=== PATIENT | female | born 1950 | race Caucasian/White ===

== ENCOUNTER → 2024-12-02 07:45 | Outpatient (BNV) | payer OTHER, SELFPAY | PROVIDERS: Visit Provider Radiology Diagnostic Radiology | DX: Z47.1 Aftercare following joint replacement surgery (principal); Z96.641 Presence of right artificial hip joint | CPT/HCPCS: 73502 ==

== ENCOUNTER 2024-12-02 07:57 | Outpatient (AMB) | payer OTHER, SELFPAY ==
--- NOTE | 2024-12-02 07:58 | MHC.OFFVIS ---
Vital Signs 12/02/24 08:04 Height 5 ft 7 in Weight 143 lb BMI 22.4 Handedness Right Intake Visit Reasons: Right leg pain, Low back pain Intake Note: Renate is a 74 year old female who presents with complaints of progressively worsening low back pain which radiates into her right groin and right leg. The patient did undergo right total hip replacement surgery by Dr. White on 04/05/2023. She states that she did fairly well from that surgery initially. Her pain as well as associated right leg weakness have gotten worse over the last year. She has taken Tylenol which gives her minimal relief. She is not able to take anti-inflammatory medicines because she is on Eliquis. The patient states that she has been limping because of weakness in her right leg. She has tried physical therapy exercises as well as yoga which gave her minimal relief. She has failed the last 6 weeks of conservative treatment. Allergies No Known Allergies Allergy (Verified 12/02/24 08:07) Medication List - Last Reconciled 12/02/24 by Adolfo Clifton MD apixaban (Eliquis) 5 mg PO BID atorvastatin 10 mg PO DAILY fluoxetine 20 mg PO DAILY Physical Exam Vital Signs: BMI result Body Mass Index 22.4 Const Other: Well-nourished well-developed very friendly female awake alert and oriented x3 in no acute distress Back/Spine/Pelvis Other: Low back examination shows right-sided paraspinal muscle tenderness, pain with range of motion, positive straight leg raise test on the right at 70 degrees, 4/5 strength with testing of her right hip flexors and knee extensors when compared to 5/5 strength on her left side Extrem Other: Right hip examination shows that the surgical incision is well healed, no erythema, minimal discomfort with range of motion, minimal tenderness over her bursa Results Reviewed Results Reviewed: X-rays of the patient's right hip show a total hip arthroplasty in good position with no signs of loosening, no acute bony abnormalities Assessment & Plan Assessment & Plan (1) Low back pain radiating to right leg: Code(s): M54.50 - Low back pain, unspecified; M79.604 - Pain in right leg Category: Medical (2) Pain of right lower extremity: Code(s): M79.604 - Pain in right leg Plan Ms. Lee presents with progressively worsening low back pain which radiates into her right leg as well as right leg weakness possibly due to lumbar stenosis or a disc herniation. Thus, I will send her for an MRI of her lumbar spine for further evaluation. I will see her back once the MRI is completed to discuss the findings and treatment options. Feel free to call me at any time should questions regarding her orthopedic management arise. Thank you very much for asking me to see this very friendly patient. I spent 20 minutes in reviewing the patient's records and imaging studies, seeing the patient and documenting in the medical record. Orders: Orders MR lumbar spine wo con Today M54.50 - Low back pain, unspecified, M79.604 - Pain in right leg XR hip RT min 2V Today M25.551 - Pain in right hip Coding Level of Care Code New Pt Level 3 (99918) Complex EM visit Add On G2211 Diagnoses Low back pain radiating to right leg M54.50; M79.604 Pain of right lower extremity M79.604
--- OUTSIDE RECORDS SUMMARY | 2024-12-02 08:00 | XMS_ITS | Clinical Summary ---
Author Organization [address] Address [address] [place] [phone] Phone Care Team Providers Care Band Presser Name Role Phone Florecita Hernandez MD Primary Care Provid er Allergies Active Allergy Reactions Criticality Noted Date Comments Latex Rash 04/05/2023 Medications fluocinolone 0.01 % cream Apply 1 Application topically 2 (two) times a day. For 2 weeks then one week off and as needed Active calcium carbonate 1,500 mg (600 mg elemental calcium) tablet Take 600 mg by mouth 1 (one) time each day. Active cholecalciferol (VITAMIN D-3) 25 mcg (1,000 unit) capsule Take 1 capsule (1,000 Units total) by mouth 1 (one) time each day. Active atorvastatin (LIPITOR) 10 mg tablet Take 1 tablet (10 mg total) by mouth 1 (one) time each day. Active hunygmbi-rar-ku rrous sulfate 4.5 mg iron tablet Take 1 tablet by mouth 1 (one) time each day. Active flaxseed oiL 1,000 mg capsule Take 1 capsule (1,000 mg total) by mouth 1 (one) time each day. Active warfarin (COUMADIN) 5 mg tablet Take 1 tablet (5 mg total) by mouth 1 (one) time each day with dinner. 30 each Active Active Problems Problem Noted Date Diagnosed Date PE (pulmonary thromboembolism) (CMS/HCC V24, CMS /HCC V28) 09/19/2024 Pulmonary embolism (CMS/HCC V24, CMS/HCC V28) Resolved Problems Problem Noted Date Diagnosed Date Resolved Date Major depressive disorder wi th single episode, in full remission ([facility] V24) 09/18/2024 09/18/2024 Other hyperlipidemia 09/18/2024 025 History of total right hip replacement 04/16/2023 09/18/2024 Osteoarthritis of right hip 03/02/2023 09/18/2024 Encounters Date Type Department Care Team Description 09/25/2024 Telephone [facility] Hematology Oncology [address] [place] [phone] Jamaal Cummins MD 09/24/2024 Telephone Gastroenterology - [address] [facility] [address] [place] [phone] Kana De La Cruz MD SPECIAL PROCEDURE 09/23/2024 11:00 AM EDT Telemedicine Vascular Surgery - [place] [address] [place] [phone] Marky Hunter MD PE (pulmonary thromboembolism) ([facility] V24, [facility] V28) (Primary Dx) 09/18/2024 9:45 AM EDT - 09/19/2024 2:31 PM EDT Hospital Encounter [facility] Intermediate Care Unit [address] [place] [phone] Blas Cedeño MD Seralathan, Manikandan, MD Acute pulmonary embolism without acute cor pulmonale, unspecified pulmonary embolism type ([facility] V24, [facility] V28) (Primary Dx); Positive D-dimer; PE (pulmonary thromboembolism) ([facility] V24, [facility] V28) Discharge Disposition: Home or Self Care from Last 3 Months Medical History Medical History Date Comments Other hyperlipidemia 09/18/2024 Major depressive disorder wi th single episode, in full remission ([facility] V24) 09/18/2024 History of total right hip replacement Osteoarthritis of right hip 03/02/2023 Family History Medical History Relation Name Comments Factor V Leiden deficiency Other h er children Relation Name Status Comments Other Social History Tobacco Use Types Packs/Day Years Used Date Smoking Tobacco: Never Smokeless Tobacco: Never Tobacco Cessation:Counseling Given: Not Answered Alcohol Use Standard Drinks/Week Comments Yes 2 (1 standard drink = 0.6 oz pur e alcohol) Housing Instability Answer Date Recorde d Are you worried that in the next 2 months you may not have stable housing? No 09/18/2024 Food Access & Nutrition Answer Date Rec orded Do you have access to a vari ety of food including fruits and vegetables? Yes 09/18/2024 Access to Healthcare Answer Date Record ed Within the last 3 months, ho w many times did you visit the emergency department for your medical care? 0 09/18/2024 Health Literacy Answer Date Recorded How often do you need to hav e someone help you when you read instructions, pamphlets, or other written material from your doctor or pharmacy? Never 09/18/2024 Caregiver: How often do you need to have someone help you when you read instructions, pamphlets, or other written material from your doctor or pharmacy? Not on file 09/18/2024 Financial Risk Answer Date Recorded How hard is it for you to pa y for the very basics like food, housing, medical care, and air conditioning / heating? Not very hard 09/18/2024 Transportation Answer Date Recorded Has the lack of transportati on kept you from meetings, work, or from getting things needed for daily living? No Has the lack of transportati on kept you from medical appointments or from getting medications? No 09/18/2024 Social Isolation Answer Date Recorded How often do you feel lonely or isolated from th ose around you? Never 09/18/2024 Food Risk Answer Date Recorded Within the past 12 months we worried whether our food would run out before we got money to buy more. Never true 09/18/2024 Within the past 12 months th e food we bought just didn't last and we didn't have money to get more. Never true 09/18/2024 Dependent Care Answer Date Recorded Do you need help finding or paying for care for your loved ones. For example, child development consultant or elderly care for an older adult? No 09/18/2024 Education Answer Date Recorded Do you think completing more education or training, like finishing a GED, going to college, or learning a trade, would be helpful for you? No 09/18/2024 Employment and Income Answer Date Recor ded During the last four weeks, have you been actively looking for work? No 09/18/2024 Living Situation Answer Date Recorded What is your living situation? 0 09/18/2024 Interpersonal Safety Answer Date Record ed Physical Abuse 09/18/2024 Verbal Abuse 09/18/2024 Comments No Sex and Gender Information Value Date Recorded Sex Assigned at Female 09/18/2024 9:59 AM EDT Legal Sex Female 8:55 PM EST Gender Identity Female 09/18/2024 9:59 AM EDT Sexual Orientation Straight 09/18/2024 9: 59 AM EDT Obstetrics History Last Filed Vital Signs Vital Sign Reading Time Taken Comments Blood Pressure 105/66 09/19/2024 11:18 AM EDT Pulse 72 09/19/2024 11:18 AM EDT Temperature 37.1 ??C (98.7 ??F) 09/19/2024 11:18 AM E DT Respiratory Rate 20 09/19/2024 11:18 AM EDT Oxygen Saturation 96% 09/19/2024 11:18 AM EDT Inhaled Oxygen Concentration - - Weight 66.4 kg (146 lb 6.2 oz) 09/18/2024 3:18 P M EDT Height 170.2 cm (5' 7 ) 09/18/2024 3:18 PM EDT Body Mass Index 22.93 09/18/2024 3:18 PM EDT Plan of Treatment Health Maintenance Due Date Last Done Comments Cholesterol Screening (Lipid Panel) 07/13/2023 Colorectal Cancer Screening: Colonoscopy 07/13/2023 Depression Screening 07/13/2023 Hepatitis C Screening 07/13/2023 Medicare Annual Wellness Visit 07/13/2023 Osteoporosis Screening (Bone Density Screening) 07/13/2023 RSV Immunization Adult Patients (1 - 1-dose 75+ series) 2024 COVID-19 Vaccine ( season) 2024 05/05/2024, 03/19/2023, 03/28/2021, Additional history exists Falls Risk Assessment 09/18/2025 09/18/2024 Social Influencers of Health Screening 09/18/2025 09/18/2024 DTaP,Tdap,and Td Vaccines (3 - Td or Tdap) 05/05/2034 05/05/2024, 07/07/2013 Pneumococcal Vaccine: 50+ Years Completed 04/03/2017, 03/02/2016 Zoster Vaccines Completed 06/16/2018, 03/18, 03/02/2016 Influenza Vaccine Completed 05/05/2024, , 03/28/2021, Additional history exists HIB Vaccines Aged Out No longer eligi ble based on patient's age to complete this topic HPV Vaccines Aged Out No longer eligi ble based on patient's age to complete this topic Hepatitis A Vaccines Aged Out No long er eligible based on patient's age to complete this topic Hepatitis B Vaccines Aged Out No long er eligible based on patient's age to complete this topic IPV Vaccines Aged Out No longer eligi ble based on patient's age to complete this topic MMR Vaccines Aged Out No longer eligi ble based on patient's age to complete this topic Meningococcal ACWY Vaccine Aged Out N o longer eligible based on patient's age to complete this topic Meningococcal B Vaccine Aged Out No l onger eligible based on patient's age to complete this topic RSV Immunization Patients Under 20 months Aged Out No longer eligible based on patient's age to complete this topic Varicella Vaccines Aged Out No longer eligible based on patient's age to complete this topic Procedures Procedure Name Priority Date/Time Associated Diagnosis Comments HEPARIN ANTI XA Timed 09/19/2024 7:00 AM EDT HEPARIN ANTI XA Timed 09/19/2024 5:07 AM EDT CBC WITH AUTO DIFFERENTIAL Routine 09/19/2024 5:07 AM EDT MAGNESIUM Routine 09/19/2024 5:07 AM EDT BASIC METABOLIC PANEL Routine 09/19/2024 5:07 AM EDT CBC AND DIFFERENTIAL Routine 09/19/2024 5:07 AM EDT HEPARIN ANTI XA Timed 09/19/2024 3:24 AM EDT HEPARIN ANTI XA STAT 09/19/2024 2:20 AM EDT ECG ANNOTATED 09/19/2024 HEPARIN ANTI XA STAT 09/18/2024 7:16 PM EDT TRANSTHORACIC ECHOCARDIOGRAM (TTE) COMPLETE Routine 09/18/2024 3:18 PM EDT PE (pulmonary thromboembolism) (CMS/HCC V24, CMS/HCC V28) XR CHEST 2 VIEWS STAT 09/18/2024 2:[address] ANGIO CHEST WO AND/OR W CONTRAST STAT 09/18/2024 11:22 AM EDT Positive D-dimer VAS US DUPLEX LOWER EXT VENOUS BILAT STAT 09/18/2024 11:18 AM EDT Positive D-dimer TROPONIN I HIGH SENSITIVITY STAT 09/18/2024 10:42 AM EDT HEPARIN ANTI XA STAT Add-on 09/18/2024 9:42 AM EDT PROTHROMBIN TIME WITH INR STAT Add-on 09/18/2024 9:42 AM EDT LIPASE STAT Add-on 09/18/2024 9:42 AM EDT HEPATIC FUNCTION PANEL STAT Add-on 9:42 AM EDT CBC WITH AUTO DIFFERENTIAL STAT 09/18/2024 9:42 AM EDT ACTIVATED PARTIAL THROMBOPLASTIN TIME STAT 09/18/2024 9:42 AM EDT B-TYPE NATRIURETIC PEPTIDE STAT 09/18/2024 9:42 AM EDT TROPONIN I HIGH SENSITIVITY STAT 09/18/2024 9:42 AM EDT BASIC METABOLIC PANEL STAT 09/18/2024 9:42 AM EDT CBC AND DIFFERENTIAL STAT 09/18/2024 9:42 AM EDT CBC WITH AUTO DIFFERENTIAL Routine 09/16/2024 11:57 AM EDT Pure hypercholesterole lyndon Myxedema heart disease Dyspnea D-DIMER Routine 09/16/2024 11:57 AM EDT Pure hypercholesterole lyndon Myxedema heart disease Dyspnea B-TYPE NATRIURETIC PEPTIDE Routine 09/16/2024 11:57 AM EDT Pure hypercholesterole lyndon Myxedema heart disease Dyspnea THYROID STIMULATING HORMONE WITH REFLEX TO FREE T4 AND FREE T3 Routine 09/16/2024 11:57 AM EDT Pure hypercholesterole lyndon Myxedema heart disease Dyspnea CBC AND DIFFERENTIAL Routine 09/16/2024 11:57 AM EDT Pure hypercholesterole lyndon Myxedema heart disease Dyspnea COMPREHENSIVE METABOLIC PANEL Routine 09/16/2024 11:57 AM EDT Pure hypercholesterole lyndon Myxedema heart disease Dyspnea from Last 3 Months Results * (ABNORMAL) Anti-Xa - Every 6 Hours (09/19/2024 7:00 AM EDT) Only the most recent of6 resultswithin the time period is included. Heparin Anti-Xa 0.99(H) 0.30 - 0.70 I Unit/mL LAB COAGULATION METHOD 09/19/2024 7:53 AM EDT [facility] Blood Venous blood specimen / Unknown Venipuncture / Unknown 09/19/2024 7:00 AM EDT 09/19/2024 7:34 AM EDT Narrative [facility] - 09/19/2024 7:53 AM EDT Therapeutic range listed is for Unfractionated Heparin. LMW Heparin therapeutic range: 0.50-1.20 IU/mL us Blas Cedeño MD LAB BLOOD ORDERABLES Final Re sult [facility] [address] [place] [address], [place] [phone] * (ABNORMAL) CBC auto differential (09/19/2024 5:07 AM EDT) Only the most recent of3 resultswithin the time period is included. WBC 4.2(L) 4.8 - 10.8 K/mcL LAB HEMETOLOGY METHOD 09/19/2024 5:20 AM [facility] RBC 3.70(L) 3.80 - 4.80 M/mcL LAB HEMETOLOGY METHOD 09/19/2024 5:20 AM [facility] Hemoglobin 12.4 11.5 - 16.0 g/dL LAB HEMETOLOGY METHOD 09/19/2024 5:20 AM [facility] Hematocrit 36.0 35.0 - 47.0 % LAB HEMETOLOGY METHOD 09/19/2024 5:20 AM [facility] MCV 97.6 79.0 - 98.0 FL LAB HEMETOLOGY METHOD 09/19/2024 5:20 AM [facility] MCH 33.6(H) 27.0 - 32.0 pcg LAB HEMETOLOGY METHOD 09/19/2024 5:20 AM [facility] MCHC 34.4 32.0 - 37.0 g/dL LAB HEMETOLOGY METHOD 09/19/2024 5:20 AM [facility] RDW 11.9 11.0 - 15.0 % LAB HEMETOLOGY METHOD 09/19/2024 5:20 AM [facility] Platelets 160 130 - 400 K/mcL LAB HEMETOLOGY METHOD 09/19/2024 5:20 AM [facility] MPV 10.3 7.0 - 11.0 FL LAB HEMETOLOGY METHOD 09/19/2024 5:20 AM [facility] NRBC 0.0 <1.0 % LAB HEMETOLOGY METHOD 09/19/2024 5:20 AM [facility] NRBC Absolute 0.00 <0.10 K/mcL LAB HEMETOLOGY METHOD 09/19/2024 5:20 AM [facility] Neutrophils Relative 46.3 % LAB HEMETOLOGY METHOD 09/19/2024 5:20 AM [facility] Lymphocytes Relative 41.5 % LAB HEMETOLOGY METHOD 09/19/2024 5:20 AM [facility] Monocytes Relative 8.6 % LAB HEMETOLOGY METHOD 09/19/2024 5:20 AM [facility] Eosinophils Relative 2.9 % LAB HEMETOLOGY METHOD 09/19/2024 5:20 AM [facility] Basophils Relative 0.7 % LAB HEMETOLOGY METHOD 09/19/2024 5:20 AM [facility] Immature Granulocytes Relative 0.0 % LAB HEMETOLOGY METHOD 09/19/2024 5:20 AM [facility] Neutrophils Absolute 1.94 1.50 - 7.00 K/mcL LAB HEMETOLOGY METHOD 09/19/2024 5:20 AM [facility] Lymphocytes Absolute 1.74 1.00 - 5.00 K/mcL LAB HEMETOLOGY METHOD 09/19/2024 5:20 AM [facility] Monocytes Absolute 0.36 0.20 - 1.00 K/mcL LAB HEMETOLOGY METHOD 09/19/2024 5:20 AM [facility] Eosinophils Absolute 0.12 0.00 - 0.50 K/mcL LAB HEMETOLOGY METHOD 09/19/2024 5:20 AM [facility] Basophils Absolute 0.03 0.00 - 0.20 K/mcL LAB HEMETOLOGY METHOD 09/19/2024 5:20 AM [facility] Immature Granulocytes Absolute 0.00 0.00 - 0.03 K/mcL LAB HEMETOLOGY METHOD 09/19/2024 5:20 AM EDT [facility] Blood Venous blood specimen / Unknown Venipuncture / Unknown 09/19/2024 5:07 AM EDT 09/19/2024 5:14 AM EDT Lynne DOWD LAB BLOOD ORDERABLES Final Re sult Performing Organization Address City/[facility]/ZIP Co de Phone Number [facility] [address] [place] [address], [place] [phone] * Magnesium (09/19/2024 5:07 AM EDT) Pathologist [facility] Magnesium 2.2 1.9 - 2.6 mg/dL LAB CHEMISTRY METHOD 09/19/2024 5:41 AM EDT [facility] Blood Venous blood specimen / Unknown Venipuncture / Unknown 09/19/2024 5:07 AM EDT 09/19/2024 5:14 AM EDT Blas Cedeño MD LAB BLOOD ORDERABLES Final Re sult Performing Organization Address City/[facility]/ZIP Co de Phone Number [facility] [address] [place] [address], [place] [phone] * Basic metabolic panel (09/19/2024 5:07 AM EDT) Only the most recent of2 resultswithin the time period is included. Sodium 139 133 - 145 mmol/L LAB CHEMISTRY METHOD 09/19/2024 5:41 AM EDT [facility] Potassium 3.9 3.5 - 5.5 mmol/L LAB CHEMISTRY METHOD 09/19/2024 5:41 AM EDT [facility] Chloride 107 96 - 110 mmol/L LAB CHEMISTRY METHOD 09/19/2024 5:41 AM EDT [facility] CO2 27 21 - 32 mmol/L LAB CHEMISTRY METHOD 09/19/2024 5:41 AM [facility] Anion Gap 5 3 - 11 LAB CHEMISTRY METHOD 09/19/2024 5:41 AM [facility] Glucose 96 70 - 100 mg/dL LAB CHEMISTRY METHOD 09/19/2024 5:41 AM [facility] BUN 18 5 - 25 mg/dL LAB CHEMISTRY METHOD 09/19/2024 5:41 AM [facility] Creatinine 0.93 0.50 - 1.10 mg/dL LAB CHEMISTRY METHOD 09/19/2024 5:41 AM [facility] eGFR 65 >=60 mL/min/1. 73m2 LAB CHEMISTRY METHOD 09/19/2024 5:41 AM [facility] Comment:Calculation based on the??Chronic Kidney Disease Epidemiology Collaboration (CKD-EPI) equation refit??without adjustment for race. BUN/Creatinine Ratio 19.4 LAB CHEMISTRY METHOD 09/19/2024 5:41 AM [facility] Calcium 8.8 8.5 - 10.5 mg/dL LAB CHEMISTRY METHOD 09/19/2024 5:41 AM [facility] Blood Venous blood specimen / Unknown Venipuncture / Unknown 09/19/2024 5:07 AM EDT 09/19/2024 5:14 AM EDT us Lynne DOWD LAB BLOOD ORDERABLES Final Re sult [facility] [address] [place] [address], * ECG-Annotated (09/19/2024) us Provider Onbase MD ECG ORDERABLES Final Result * (ABNORMAL) TRANSTHORACIC ECHOCARDIOGRAM (TTE) COMPLETE (09/18/2024 3:18 PM EDT) Left Atrium Major [place] 4.5 cm CV PACS LA Area Sys (A4C) 14 cm2 CV PACS RA Area 10.6 cm2 CV PACS RA 2D Volume 21 mL CV PACS Aortic Sinus Valsalva 3.5 cm CV PACS Ascending Aorta 3.4 cm CV PACS LVOT Diameter 2.1 cm CV PACS MV E' Tissue Velocity Lateral 9 cm/s CV PACS MV E' Tissue Velocity Septal 5 cm/s CV PACS LVOT Area 3.5 cm2 CV PACS E Wave Deceleration Time 239 119 - 242 ms CV PACS MV Peak A Naif 0.80 m/s CV PACS MV Peak E Naif 0.50 m/s CV PACS RV S' 13 cm/s CV PACS TR Peak Velocity 2.70 m/s CV PACS TR Peak Gradient 30 mmHg CV PACS E/E' Ratio Septal 10 CV PACS E/E' Ratio Averaged 8 CV PACS Ascending Aorta Index 1.92 cm/m2 CV PACS RA 2D Volume Index 12 15 - 27 mL/m2 CV PACS E/A Ratio 0.6 0.8 - 2.0 CV PACS E/E' Ratio Lateral 6 CV PACS BSA 1.77 m2 CV PACS Right Ventricular Peak Systolic Pressure 32 mmHg CV PACS Est. RA Pressure 3 mmHg CV PACS LVIDD 4.8 3.8 - 5.2 cm CV PACS LVIDD Index 2.71 cm/m2 CV PACS LVPWD 1.0(A) 0.6 - 0.9 cm CV PACS IVSD 0.8 0.6 - 0.9 cm CV PACS LV Mass 2D 148(A) 66 - 150 g CV PACS LV Mass Index 2D 83 44 - 88 g/m2 CV PACS Relative Wall Thickness ratio 0.42 0.22 - 0.42 CV PACS RV Free Wall Peak S' 13 cm/s CV PACS RA Major [place] 4.4 cm CV PACS RA Major [place] Index 2.5 2.2 - 2.8 cm/m2 CV PACS MV PHT 69 ms CV PACS LVIDS 2.7 2.2 - 3.5 cm CV PACS LVIDS Index 1.53 cm/m2 CV PACS FS 44 % CV PACS Anatomical Region Laterality Modality Ultrasound Narrative 09/18/2024 3:51 PM EDT 1. ??Normal biventricular size and systolic function. Normal left ventricular regional wall motion with an ejection fraction of 60 to 65%. 2. ??No hemodynamically significant valve disease. 3. ??Normal left ventricular diastolic function. ??Normal pulmonary artery systolic pressure. Technically adequate, 2D, M-mode, and Doppler echocardiogram without significant pathologic findings. Left Ventricle Left ventricle cavity size is normal. Wall thickness is normal. Systolic function is normal with an ejection fraction of 60-65%. There are no regional LV wall motion abnormalities. There is no diastolic dysfunction and normal left atrial pressure. Right Ventricle Right ventricle cavity appears normal. Systolic function is normal. Left Atrium Left atrium cavity size is normal. Right Atrium Right atrium cavity is normal. IVC/SVC Inferior vena cava structure is normal. RA pressures is estimated to be 3 mmHg (IVC diameter <21 mm and decreases >50% during inspiration). Mitral Valve The leaflets are mildly thickened and exhibit normal excursion. There is trace regurgitation. There is no evidence of mitral valve stenosis. Tricuspid Valve The leaflets exhibit normal excursion. There is mild regurgitation. There is no evidence of tricuspid valve stenosis. Aortic Valve The aortic valve is trileaflet. There is trace regurgitation. There is no evidence of aortic valve stenosis. Pulmonic Valve Visualized portions of the pulmonic valve appear normal. There is no regurgitation or stenosis. Ascending Aorta The aorta appears normal in size. Pericardium Pericardium appears normal. There is no pericardial effusion. Study Details Overall the study quality was adequate. us Lynne DOWD CV ECHO PROCEDURES Final Resu lt * XR Chest 2 Views (09/18/2024 2:47 PM EDT) Anatomical Region Laterality Modality Body Radiographic Madisyn ging 09/18/2024 3:07 PM EDT Impressions 09/18/2024 3:08 PM EDT FINDINGS/IMPRESSION: No consolidation or effusion. ??Normal heart size without congestive heart failure. ??Pleural parenchymal scarring at the apices. ??Mild degenerative changes. -------- FINAL REPORT -------- Dictated By: Jan Cherry Dictated Date: 09/18/2024 15:07 ET Assigned Physician: Jan Cherry Reviewed and Electronically Signed By: Jan Cherry Signed Date: 09/18/2024 15:08 ET Workstation ID: [id number] Transcribed By: Self Edit Transcribed Date: 09/18/2024 15:07 ET Narrative 09/18/2024 3:08 PM EDT XR CHEST 2 VIEWS INDICATION: dyspnea TECHNIQUE: XR CHEST 2 VIEWS COMPARISON: No priors available. Procedure Note Jan Cherry MD - 09/18/2024 XR CHEST 2 VIEWS INDICATION: dyspnea TECHNIQUE: XR CHEST 2 VIEWS COMPARISON: No priors available. IMPRESSION: FINDINGS/IMPRESSION: No consolidation or effusion. Normal heart sizewithout congestive heart failure. Pleural parenchymal scarring at theapices. Mild degenerative changes. -------- FINAL REPORT -------- Dictated By: Jan Cherry Dictated Date: 09/18/2024 15:07 ET Assigned Physician: Jan Cherry Reviewed and Electronically Signed By: Jan Cherry Signed Date: 09/18/2024 15:08 ET Workstation ID: [id number] Transcribed By: Self Edit Transcribed Date: 09/18/2024 15:07 ET Lynne DOWD IMG XR PROCEDURES Final Resul t * CT Angio Chest wo and/or w Contrast (09/18/2024 11:22 AM EDT) Anatomical Region Laterality Modality Body Computed Tomogra phy 09/18/2024 11:5 5 AM EDT Impressions 09/18/2024 11:59 AM EDT Bilateral pulmonary arterial emboli without evidence of right heart strain or pulmonary infarct. Findings communicated to the ordering provider at time of final report signing. -------- FINAL REPORT -------- Dictated By: DREW LIAO Dictated Date: 09/18/2024 11:55 ET Assigned Physician: DREW LIAO Reviewed and Electronically Signed By: DREW LIAO Signed Date: 09/18/2024 11:59 ET Workstation ID: [id number] Transcribed By: Self Edit Transcribed Date: 09/18/2024 11:55 ET Narrative 09/18/2024 11:59 AM EDT PROCEDURE: Chest CTA INDICATION: Pulmonary embolism, elevated d-dimer TECHNIQUE: Chest CTA with intravenous administration of 75cc [id number]-370. Multi planar reformats were created and interpreted. The examination was performed utilizing dose reduction techniques.3-D or MIP images were produced with postprocessing on an independent computer workstation. ??Total DLP 175 COMPARISON: ??No priors available. FINDINGS: LUNGS/PLEURA: Central airways are patent. ??Biapical pleural-parenchymal scarring. ??No consolidation, pleural effusion, or pneumothorax. MEDIASTINUM: There are extensive bilateral pulmonary arterial emboli throughout the pulmonary arteries with clot burden more pronounced on the right. ??No CT evidence of right heart strain. ??Cardiac chambers are normal in size. ??No pericardial effusion. ??Thoracic aorta is normal in size. ??No dissection. ??No mediastinal or hilar lymphadenopathy. ??Esophagus is patulous. ??Small, heterogeneous thyroid gland, not well assessed by CT. CHEST WALL: No axillary lymphadenopathy or superficial hematoma. UPPER ABDOMEN:Multiple hepatic cysts. BONES: No acute fracture. Scattered degenerative changes seen throughout the bones. Procedure Note Drew Liao MD - 09/18/2024 PROCEDURE: Chest CTA INDICATION: Pulmonary embolism, elevated d-dimer TECHNIQUE: Chest CTA with intravenous administration of 75cc ISOVUE-370.Multi planar reformats were created and interpreted. The examination wasperformed utilizing dose reduction techniques.3-D or MIP images wereproduced with postprocessing on an independent computer workstation.Total DLP 175 COMPARISON: No priors available. FINDINGS: LUNGS/PLEURA: Central airways are patent. Biapical pleural-parenchymalscarring. No consolidation, pleural effusion, or pneumothorax. MEDIASTINUM: There are extensive bilateral pulmonary arterial embolithroughout the pulmonary arteries with clot burden more pronounced on theright. No CT evidence of right heart strain. Cardiac chambers are normalin size. No pericardial effusion. Thoracic aorta is normal in size. Nodissection. No mediastinal or hilar lymphadenopathy. Esophagus ispatulous. Small, heterogeneous thyroid gland, not well assessed by CT. CHEST WALL: No axillary lymphadenopathy or superficial hematoma. UPPER ABDOMEN:Multiple hepatic cysts. BONES: No acute fracture. Scattered degenerative changes seen throughoutthe bones. IMPRESSION: Bilateral pulmonary arterial emboli without evidence of right heart strainor pulmonary infarct. Findings communicated to the ordering provider at time of final reportsigning. -------- FINAL REPORT -------- Dictated By: DREW LIAO Dictated Date: 09/18/2024 11:55 ET Assigned Physician: DREW LIAO Reviewed and Electronically Signed By: DREW LIAO Signed Date: 09/18/2024 11:59 ET Workstation ID: [id number] Transcribed By: Self Edit Transcribed Date: 09/18/2024 11:55 ET us Lb [facility] IMG CT PROCEDURES Final R esult * Vascular US Duplex Lower Extremity Venous Bilateral (09/18/2024 11:18 AM EDT) Anatomical Region Laterality Modality Vascular, Abdomen Ultrasound 09/18/2024 11:5 4 AM EDT Impressions 09/18/2024 11:55 AM EDT NO RIGHT OR LEFT LOWER EXTREMITY DEEP VENOUS THROMBOSIS. -------- FINAL REPORT -------- Dictated By: DREW LIAO Dictated Date: 09/18/2024 11:54 ET Assigned Physician: DREW LIAO Reviewed and Electronically Signed By: DREW LIAO Signed Date: 09/18/2024 11:55 ET Workstation ID: [id number] Transcribed By: Self Edit Transcribed Date: 09/18/2024 11:54 ET Narrative 09/18/2024 11:55 AM EDT PROCEDURE: VAS US DUPLEX LOWER EXT VENOUS BILAT INDICATION: Pain TECHNIQUE: 2-D and color Doppler imaging of the lower extremity venous vasculature with compression and augmentation maneuvers. COMPARISON: No priors available. FINDINGS: RIGHT: There is normal flow, compression, and augmentation from the common femoral through the popliteus. ??Visualized calf veins are patent LEFT: There is normal flow, compression, and augmentation from the common femoral through the popliteus. ??Visualized calf veins are patent Procedure Note Drew Liao MD - 09/18/2024 PROCEDURE: VAS US DUPLEX LOWER EXT VENOUS BILAT INDICATION: Pain TECHNIQUE: 2-D and color Doppler imaging of the lower extremity venousvasculature with compression and augmentation maneuvers. COMPARISON: No priors available. FINDINGS: RIGHT: There is normal flow, compression, and augmentation from the commonfemoral through the popliteus. Visualized calf veins are patent LEFT: There is normal flow, compression, and augmentation from the commonfemoral through the popliteus. Visualized calf veins are patent IMPRESSION: NO RIGHT OR LEFT LOWER EXTREMITY DEEP VENOUS THROMBOSIS. -------- FINAL REPORT -------- Dictated By: DREW LIAO Dictated Date: 09/18/2024 11:54 ET Assigned Physician: DREW LIAO Reviewed and Electronically Signed By: DREW LIAO Signed Date: 09/18/2024 11:55 ET Workstation ID: [id number] Transcribed By: Self Edit Transcribed Date: 09/18/2024 11:54 ET Lb DOW[facility] CV VASCULAR PROCEDURES Fi nal Result * Troponin I high sensitivity (09/18/2024 10:42 AM EDT) Only the most recent of2 resultswithin the time period is included. High Sensitivity Troponin I 3 <=54 ng/L LAB CHEMISTRY METHOD 09/18/2024 11:23 AM EDT [facility] Blood Venous blood specimen / Unknown Venipuncture / Unknown 09/18/2024 10:42 AM EDT 09/18/2024 10:55 AM EDT Narrative [facility] - 09/18/2024 11:23 AM EDT High levels of biotin in samples may falsely decrease hsTroponin values. ??Use caution when interpreting hsTroponin results in patients taking biotin who exhibit renal impairment (eGFR <60) or in patients taking more than 20 mg/day of biotin. Blas Cedeño MD LAB BLOOD ORDERABLES Final Re sult [facility] [address] [place] [address], * APTT (09/18/2024 9:42 AM EDT) aPTT 27.8 24.1 - 39.3 sec LAB COAGULATION METHOD 09/18/2024 9:59 AM EDT [facility] Blood Venous blood specimen / Unknown Venipuncture / Unknown 09/18/2024 9:42 AM EDT 09/18/2024 9:47 AM EDT Blas Cedeño MD LAB BLOOD ORDERABLES Final Re sult [facility] [address] [place] [address], [place] [phone] * Prothrombin Time with INR - STAT (09/18/2024 9:42 AM EDT) [facility] Protime 11.5 10.6 - 13.9 sec LAB COAGULATION METHOD 09/18/2024 1:58 PM EDT [facility] INR 0.9 LAB COAGULATION METHOD 09/18/2024 1:58 PM EDT [facility] Blood Venous blood specimen / Unknown Venipuncture / Unknown 09/18/2024 9:42 AM EDT 09/18/2024 9:47 AM EDT Lb [facility] LAB BLOOD ORDERABLES Day l Result [facility] [address] [place] [address], [place] [phone] * B-type natriuretic peptide (09/18/2024 9:42 AM EDT) Only the most recent of2 resultswithin the time period is included. Pathologist [facility] BNP 46 <=100 pcg/mL LAB CHEMISTRY METHOD 09/18/2024 10:27 AM EDT [facility] Blood Venous blood specimen / Unknown Venipuncture / Unknown 09/18/2024 9:42 AM EDT 09/18/2024 9:47 AM EDT Blas Cedeño MD LAB BLOOD ORDERABLES Final Re sult Performing Organization Address [facility]/ZIP Co de Phone Number [facility] [address] [place] [address], [place] [phone] * Lipase (09/18/2024 9:42 AM EDT) [facility] Lipase 36 13 - 75 unit/L LAB CHEMISTRY METHOD 09/18/2024 11:47 AM EDT [facility] Blood Venous blood specimen / Unknown Venipuncture / Unknown 09/18/2024 9:42 AM EDT 09/18/2024 9:47 AM EDT Lb [facility] LAB BLOOD ORDERABLES Day l Result Performing Organization Address [facility]/ZIP Co de Phone Number [facility] [address] [place] [address], [place] [phone] * Hepatic function panel (09/18/2024 9:42 AM EDT) [facility] Total Protein 6.6 6.0 - 8.0 g/dL LAB CHEMISTRY METHOD 09/18/2024 12:52 PM EDT [facility] Albumin 3.7 3.2 - 5.0 g/dL LAB CHEMISTRY METHOD 09/18/2024 12:52 PM EDT [facility] Total Bilirubin 0.5 0.0 - 1.4 mg/dL LAB CHEMISTRY METHOD 09/18/2024 12:52 PM EDT [facility] Bilirubin, Direct 0.2 0.0 - 0.3 mg/dL LAB CHEMISTRY METHOD 09/18/2024 12:52 PM EDT [facility] Bilirubin, Indirect 0.3 0.0 - 1.1 mg/dL LAB CHEMISTRY METHOD 09/18/2024 12:52 PM EDT [facility] ALT (SGPT) 23 10 - 60 unit/L LAB CHEMISTRY METHOD 09/18/2024 12:52 PM EDT [facility] AST (SGOT) 29 10 - 42 unit/L LAB CHEMISTRY METHOD 09/18/2024 12:52 PM EDT [facility] Alkaline Phosphatase 63 42 - 121 unit/L LAB CHEMISTRY METHOD 09/18/2024 12:52 PM EDT [facility] Blood Venous blood specimen / Unknown Venipuncture / Unknown 09/18/2024 9:42 AM EDT 09/18/2024 9:47 AM EDT Lb DOW[facility] LAB BLOOD ORDERABLES Day l Result Performing Organization Address City/[facility]/ZIP Co de Phone Number [facility] [address] [place] [address], [place] [phone] * Thyroid stimulating hormone with reflex to free t4 and free t3 (09/16/2024 11:57 AM EDT) [facility] TSH 2.07 0.40 - 4.00 mcIU/mL LAB CHEMISTRY METHOD 09/16/2024 5:28 PM EDT [facility] Blood Venous blood specimen / Unknown Venipuncture / Unknown 09/16/2024 11:57 AM EDT 09/16/2024 12:14 PM EDT Florecita Hernandez MD LAB BLOOD ORDERABLES Final Result [facility] [address] [place] [address], [place] [phone] * (ABNORMAL) D-Dimer (09/16/2024 11:57 AM EDT) Pathologist [facility] D-Dimer, Quant (D-DU) 2,703(H) <=230 ng/mL DDU LAB COAGULATION METHOD 09/16/2024 12:31 PM EDT [facility] Blood Venous blood specimen / Unknown Venipuncture / Unknown 09/16/2024 11:57 AM EDT 09/16/2024 12:[address] [facility] - 09/16/2024 12:31 PM EDT D-Dimer <230 ng/mL (D-Dimer units) is the threshold for exclusion of DVT/PE. D-Dimer may be elevated in: Critically ill, severely infected, trauma patients, DIC, acute CVA, acute GA, unstable angina, AF, old age, , and smoking. D-Dimer may be decreased with: Initiation of heparin therapy and oral anticoagulants. us Florecita Hernandez MD LAB BLOOD ORDERABLES Final Result [facility] [address] [place] [address], * Comprehensive metabolic panel (09/16/2024 11:57 AM EDT) Sodium 140 133 - 145 mmol/L LAB CHEMISTRY METHOD 09/16/2024 4:47 PM [facility] Potassium 4.3 3.5 - 5.5 mmol/L LAB CHEMISTRY METHOD 09/16/2024 4:47 PM [facility] Chloride 106 96 - 110 mmol/L LAB CHEMISTRY METHOD 09/16/2024 4:47 PM [facility] CO2 28 21 - 32 mmol/L LAB CHEMISTRY METHOD 09/16/2024 4:47 PM [facility] Anion Gap 6 3 - 11 LAB CHEMISTRY METHOD 09/16/2024 4:47 PM [facility] Glucose 88 70 - 100 mg/dL LAB CHEMISTRY METHOD 09/16/2024 4:47 PM [facility] BUN 15 5 - 25 mg/dL LAB CHEMISTRY METHOD 09/16/2024 4:47 PM [facility] Creatinine 0.83 0.50 - 1.10 mg/dL LAB CHEMISTRY METHOD 09/16/2024 4:47 PM [facility] eGFR 74 >=60 mL/min/1. 73m2 LAB CHEMISTRY METHOD 09/16/2024 4:47 PM [facility] Comment:Calculation based on the??Chronic Kidney Disease Epidemiology Collaboration (CKD-EPI) equation refit??without adjustment for race. BUN/Creatinine Ratio 18.1 LAB CHEMISTRY METHOD 09/16/2024 4:47 PM [facility] Calcium 9.0 8.5 - 10.5 mg/dL LAB CHEMISTRY METHOD 09/16/2024 4:47 PM [facility] AST (SGOT) 21 10 - 42 unit/L LAB CHEMISTRY METHOD 09/16/2024 4:47 PM [facility] ALT (SGPT) 25 10 - 60 unit/L LAB CHEMISTRY METHOD 09/16/2024 4:47 PM [facility] Alkaline Phosphatase 59 42 - 121 unit/L LAB CHEMISTRY METHOD 09/16/2024 4:47 PM [facility] Total Protein 6.2 6.0 - 8.0 g/dL LAB CHEMISTRY METHOD 09/16/2024 4:47 PM [facility] Albumin 3.7 3.2 - 5.0 g/dL LAB CHEMISTRY METHOD 09/16/2024 4:47 PM [facility] Total Bilirubin 0.4 0.0 - 1.4 mg/dL LAB CHEMISTRY METHOD 09/16/2024 4:47 PM [facility] Blood Venous blood specimen / Unknown Venipuncture / Unknown 09/16/2024 11:57 AM EDT 09/16/2024 12:14 PM EDT Florecita Hernandez MD LAB BLOOD ORDERABLES Final Result [facility] [address] [place] [address], [place] [phone] from Last 3 Months Insurance [employer] MEDICARE Advance Directives * Full Code - Confirmed (Latest Code Status on File) Date Activated Date Inactivated Comments 09/18/2024 2:51 PM 09/19/2024 4:32 PM This code stat us was ascertained in the following way: Code status discussion: discussion with patient To update the patient's code status, place a code status order. Do not modify or discontinue any currently active code status orders. * Full Code - Default Date Activated Date Inactivated Comments 09/18/2024 2:45 PM 09/18/2024 2:51 PM This is order is used when code status has not been discussed with the patient, or code status is otherwise unknown/unconfirmed To update the patient's code status, place a code status order. Do not modify or discontinue any currently active code status orders. Care Teams Band Presser Relationship Specialty Start Date End Date Florecita Hernandez MD [address] [place] [address] [address] [place] [phone] PCP - General Endocrinology 09/16/24
[2024-12-02 08:04] VITALS: BMI 22.4
== END 2024-12-02 08:27 | disposition home or self-care (01) ==
LOC: HO.HOS 07:58
PROVIDERS: Visit Provider Orthopaedic Surgery
DX: M54.50 Low back pain, unspecified (principal); M79.604 Pain in right leg
CPT/HCPCS: 99203

== ENCOUNTER 2024-12-02 08:20 | Outpatient (REF) | payer MEDICARE, SELFPAY ==
--- NOTE | ~2024-12-02 | XR_ITS ---
EXAMINATION: XR HIP, RIGHT CLINICAL INFORMATION: M25.551 - Pain in right hip COMPARISON: None available. TECHNIQUE: Two views of the right hip. FINDINGS: There is a metallic prosthesis with an acetabular and femoral component well-seated in the osseous structures. No acute cortical disruption or malalignment. No gross loosening. Left hip demonstrates sclerosis along the articular surface of the acetabulum and to a lesser extent femoral head. No acute cortical disruption or malalignment. 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 Electronically signed by: Ritesh Martino MD 12/02/2024 08:39 AM EDT
--- OUTSIDE RECORDS SUMMARY | 2024-12-03 08:36 | XMS_ITS | Continuity of Care Document ---
Author Organization [facility] [address] [facility] [address] [place] [address] Phone [phone] Care Team Providers Care Principal Technologist Name Role Phone Florecita Hernandez M.D. 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 Onset: 08/28/2022 Leukopenia Florecita Hernandez M.D. Ons et: 08/28/2022 Chronic depression Florecita Hernandez M.D. Onset: 08/28/2022 Osteopenia Florecita Hernandez M.D. Ons et: 08/28/2022 Osteoarthritis of hip Regan Vides Onset: 08/28/2022 Pure hypercholesterolemia Florecita Hernandez M.D. Onset: 08/28/2022 History of deep vein thrombosis Florecita Burt M.D. Onset: 08/28/2022 Subclinical hypothyroidism Florecita castañeda M.D. Onset: 08/28/2022 Social History Type Date Description Comments Sex Female Sex Unknown Lives With Spouse Occupation dental hygenist Work Status Retired ETOH Use Occasionally consumes alcoho l Tobacco Use Start: Unknown Patient has never smoked Allergies and adverse reactions Description No Known Drug Allergies Medications Active Medications SIG Qnty Indications Order ing Provider Date Etcleao4co Tablets Take 1 tablet by mouth twice a day, starting on September 29, 2024 180tabs Florecita Hernandez M.D. 09/26/2024 Atorvastatin [id number] Tablets Take 1 Tablet By Mouth Daily 90tabs Florecita Hernandez M.D. 03/13/2024 Bxwuxpi39vo/0.4ML Soln Prefill Syringe 40 mg sc qd as directed-4 pens 4ml Florecita Hernandez M.D. 08/21/2023 Triamcinolone Acetonide0.1% Ointment apply twice a day as directed to eczematous patches 45gm Florecita Hernandez M.D. 08/21/2023 Probiotic DailyCapsules 1 qd Florecita Hernandez M.D. 08/21/2023 Fluoxetine KCZ46ov Capsules Take 1 Capsule By Mouth Daily 90caps Florecita Hernandez M.D. Fluocinolone Acetonide0.01% Cream Apply To Affected Areas Of Eczema On Face Twice A Day Two Weeks On, One Week Off Unknown Calcium Citrate+X5797-9.25mg- mcg Tablets 3 by mouth daily Florecita Hernandez M.D. Vitamin P599zly (2000 Ut) Capsules 1 by mouth every day Florecita Hernandez M.D. Multivitamin Adults 50+Adlt 50+ Tablets 1 by mouth every day Florecita Hernandez M.D. Eql Flaxseed [id number] Capsules 1 by mouth every day Florecita Hernandez M.D. Vital Signs Date Vital Result Comment 10/02/2024 2:42pm BP Systolic 110 mmHg BP Diastolic 62 mmHg Heart Rate 78 /min Height 66.5 inches 5'6.50 Weight 146.50 lb BMI (Body Mass Index) 23.3 kg/m2 Results Test Acquired Date Facility Test Result H/L Range Note Prothrombin Time (PT) 09/26/2024 [facility] Inr 3.0 High 0.9-1.1 1 Prothrombin Time 28.3 SEC High 9.2-11.4 Prothrombin Time (PT) 09/23/2024 [facility] Inr 1.5 High 0.9-1.1 2 Prothrombin Time 15.1 SEC High 9.2-11.4 CMP W/Egfr 09/16/[address] [address] [phone] Z#Other Observations <pending> CBC W/Auto Differential 09/16/[address] [address] White Blood Count Ser Auto CNT <pending> RBC Red Blood Count-Auto <pending> Hemoglobin Blood <pending> Hematocrit <pending> MCV (Corpuscular Volume) <pending> MCH (Corpuscular Hemoglobin) <pending> MCHC (Corpuscular Hemog Conc) <pending> RDW <pending> Platelet Count Blood Auto CNT <pending> MPV <pending> Neutrophils <pending> Fluid Bands <pending> Fluid Lymphocytes <pending> Monocytes <pending> Fluid Body Eosinophils Manual <pending> Basophils % <pending> Absolute Basophils <pending> Absolute Eosinophils <pending> Absolute Lymphocytes Blood <pending> Absolute Monocytes <pending> Absolute Neutrophils Auto CNT <pending> TSH W/Reflex To Free T4 09/16/[address] [address] [phone] TSH Thyroid Stimulating Horm <pending> NT Probnp QN Ser/Plas 09/16/[address] [address] NT Probnp QN Ser/Plas <pending> D-Dimer Test 09/16/[address] [address] Z#Other Observations <pending> Urinalysis, Complete 04/01/2024 [facility] Specific [place] 1.014 1.005-1.03 0 3 pH 6.5 5.0-7.5 Urine-Color Yellow Yellow Appearance Clear Clear WBC Esterase 2+ Abnormal Negative Protein Negative Negative/T race Glucose Negative Negative Ketones Negative Negative Occult Blood Negative Negative Bilirubin Negative Negative Urobilinogen,Se mi-Qn 1.0 mg/dL 0.2-1.0 Nitrite, Urine Positive Abnormal Negativ e Microscopic Examination See below: 4 Microscopic Examination TNP WBC 6-10 /hpf Abnormal 0 - 5 RBC 0-2 /hpf 0 - 2 Epithelial Cells (non renal) 0-10 /hpf 0 - 10 Epithelial Cells (renal) TNP Casts None seen /lpf None seen Cast Type TNP Crystals TNP Crystal Type TNP Mucus Threads TNP Bacteria None seen None seen/Few Yeast TNP Trichomonas TNP Comment TNP Urine Culture, Routine 04/01/2024 [facility] Urine Culture, Routine Final report 5 Result 1 See Comment: 6 Comp. Metabolic Panel (14) 03/11/2024 [facility] Glucose 91 mg/dL 70-99 BUN 13 mg/dL 8-27 Creatinine 0.79 mg/dL 0.57-1.00 eGFR 78 mL/min/1.7 3 >59 BUN/Creatinine Ratio 16 12-28 Sodium 143 mmol/L 134-144 Potassium 4.2 mmol/L 3.5-5.2 Chloride 104 mmol/L 96-106 Carbon Dioxide, Total 23 mmol/L 20-29 Calcium 9.0 mg/dL 8.7-10.3 Protein, Total 6.4 g/dL 6.0-8.5 Albumin 4.3 g/dL 3.8-4.8 Globulin, Total 2.1 g/dL 1.5-4.5 Bilirubin, Total 0.5 mg/dL 0.0-1.2 Alkaline Phosphatase 58 IU/L 44-121 Ast (Sgot) 29 IU/L 0-40 Alt (SGPT) 20 IU/L 0-32 Lipid Panel 03/11/2024 [facility] Cholesterol, Total 253 mg/dL High 100-199 Triglycerides 126 mg/dL 0-149 HDL Cholesterol 65 mg/dL >39 VLDL Cholesterol Farhat 22 mg/dL 5-40 LDL Chol Calc ([facility]) 166 mg/dL High 0-99 LDL Calc Comment: TNP CBC With Differential/Pl atelet 03/11/2024 [facility] WBC 3.6 x10E3/uL 3.4-10.8 RBC 3.85 x10E6/uL 3.77-5.28 Hemoglobin 12.9 g/dL 11.1-15.9 Hematocrit 38.7 % 34.0-46.6 MCV 101 fL High 79-97 MCH 33.5 pg High 26.6-33.0 MCHC 33.3 g/dL 31.5-35.7 RDW 12.1 % 11.7-15.4 Platelets 216 x10E3/uL 150-450 Neutrophils 63 % Not Estab. Lymphs 24 % Not Estab. Monocytes 10 % Not Estab. Eos 2 % Not Estab. Basos 1 % Not Estab. Immature Cells TNP Neutrophils (Absolute) 2.3 x10E3/uL 1.4-7.0 Lymphs (Absolute) 0.9 x10E3/uL 0.7-3.1 Monocytes(Absol giana) 0.3 x10E3/uL 0.1-0.9 Eos (Absolute) 0.1 x10E3/uL 0.0-0.4 Baso (Absolute) 0.0 x10E3/uL 0.0-0.2 Immature Granulocytes 0 % Not Estab. Immature Grans (Abs) 0.0 x10E3/uL 0.0-0.1 NRBC TNP Hematology Comments: TNP TSH Rfx on Abnormal to Free T4 03/11/2024 [facility] TSH Rfx on Abnormal to Free T4 2.610 uIU/mL 0.450-4.50 0 Sedimentation Rate-Westergren 01/04/2024 [facility] Sedimentation Rate-Westergren 3 mm/hr 0-40 Complete Abc With Diff 08/21/2023 [facility] WBC 4.0 K/MM3 (4.0-11.0) RBC 3.97 M/MM3 Low (4.20-5.40 ) HGB 13.2 GM/DL (11.7-15.5 ) HCT 41.4 % (35.7-45.8 ) MCV 104.3 FL High (80.0-100. 0) MCH 33.2 pg (27.0-34.0 ) MCHC 31.9 g/dL Low (33.0-37.0 ) PLT 209 K/MM3 (150-460) RDW-SD 48.7 FL High (<47.0) MPV 11.4 FL (9.4-12.4) Automated NRBC 0.0 #/100WBC'S Abs. NRBC 0.0 K/MM3 Neut # 2.2 K/MM3 (1.3-7.0) Lymph # 1.3 K/MM3 (0.8-3.1) [place]# 0.3 K/MM3 Low (0.4-0.9) Eo # 0.1 K/MM3 (0.0-0.4) Baso # 0.0 K/MM3 (0.0-0.1) Abs. Imm Gran 0.0 K/MM3 Neut 55.8 % (44-76) Lymph 33.3 % (15-43) Monocyte 8.5 % (4.5-10.5) Eo 1.3 % (0-6) Baso 0.8 % (0-2) Imm Gran 0.3 % Complete Abc With Diff 03/14/2023 [facility] WBC 3.7 K/MM3 Low (4.0-11.0) RBC 3.94 M/MM3 Low (4.20-5.40 ) HGB 12.8 GM/DL (11.7-15.5 ) HCT 40.5 % (35.7-45.8 ) MCV 102.8 FL High (80.0-100. 0) MCH 32.5 pg (27.0-34.0 ) MCHC 31.6 g/dL Low (33.0-37.0 ) PLT 192 K/MM3 (150-460) RDW-SD 47.6 FL High (<47.0) MPV 11.7 FL (9.4-12.4) Automated NRBC 0.0 #/100WBC'S Abs. NRBC 0.0 K/MM3 Neut # 2.2 K/MM3 (1.3-7.0) Lymph # 1.2 K/MM3 (0.8-3.1) [place]# 0.3 K/MM3 Low (0.4-0.9) Eo # 0.0 K/MM3 (0.0-0.4) Baso # 0.0 K/MM3 (0.0-0.1) Abs. Imm Gran 0.0 K/MM3 Neut 58.2 % (44-76) Lymph 31.3 % (15-43) Monocyte 8.9 % (4.5-10.5) Eo 0.5 % (0-6) Baso 0.8 % (0-2) Imm Gran 0.3 % TSH With Reflex To FT4 03/14/2023 [facility] TSH With Reflex To FT4 2.38 uIU/mL (0.4-4.2) Basic Metabolic Panel 03/14/2023 [facility] Glucose 97 mg/dL (70-99) BUN 17 mg/dL (8-23) Creatinine 0.8 mg/dL (0.5-1.0) Sodium 140 mmol/L (133-145) Potassium 5.3 mmol/L High (3.6-5.2) Chloride 103 mmol/L (98-107) Bicarbonate 28 mmol/L (22-29) Anion Gap 9 (4-17) Calcium 9.5 mg/dL (8.6-10.5) Estimated GFR Creatinine 78 ML/MIN/1.7 3M2 7 Urinalysis Complete 01/03/2023 [facility] Appear/Color DARK YELLOW 8 SP. [place] 1.005 (1.002-1.0 30) Urine PH 6.0 (5.0-8.0) Urine Albumin NEGATIVE (Neg) Urine Glucose NEGATIVE (Neg) Urine Ketones NEGATIVE (Neg) Urine Bilirubin 1+ Abnormal (Neg) Urine Hemoglobin NEGATIVE (Neg) Urine Nitrite POSITIVE Abnormal (Neg) Urine Leukocyte 2+ Abnormal (Neg) Urobilinogen 2 mg/dL Abnormal (Norm) Urine WBCs 45 /HPF High (0-5) Urine RBCs 1 /HPF (0-3) Bacteria SLIGHT HPF Abnormal (Neg) Culture Urine 01/03/2023 [facility] Specimen Description URINE CLEAN CATC <SEE NOTE> 9 Special Requests NONE Culture 10-50,000 COL/ML <SEE NOTE> Abnormal 10 Report Status FINAL 01/05/2023 11 Culture Urine 01/02/2023 [facility] Culture Urine <pending> Comprehensive Metabolic Panl 08/30/2022 [facility] Glucose 90 mg/dL (70-99) BUN 17 mg/dL (8-23) Creatinine 0.8 mg/dL (0.5-1.0) Sodium 140 mmol/L (133-145) Potassium 4.3 mmol/L (3.6-5.2) Chloride 102 mmol/L (98-107) Bicarbonate 30 mmol/L High (22-29) Anion Gap 8 (4-17) Albumin 4.3 GM/DL (3.4-4.8) Calcium 9.3 mg/dL (8.6-10.5) Bilirubin,Total 0.4 mg/dL (0-1.2 ) Total Protein 6.0 GM/DL Low (6.2-8.2 ) Ag Ratio 2.5 Ast 29 U/L (0-32) Alk Phos 48 U/L (35-104) Alt 18 U/L (0-33) Estimated GFR Creatinine 76 ML/MIN/1.7 3M2 12 Lipid Panel 08/30/2022 [facility] Cholesterol, Total 216 mg/dL High (<200) Triglyceride 131 mg/dL (<150) HDL Chol 63 mg/dL (>39) LDL Cholesterol, Calculated 127 mg/dL (0-130) Non HDL Cholesterol (Calc) 153 mg/dL (<160) Complete Abc With Diff 08/30/2022 [facility] WBC 3.2 K/MM3 Low (4.0-11.0) RBC 3.89 M/MM3 Low (4.20-5.40 ) HGB 12.9 GM/DL (11.7-15.5 ) HCT 39.1 % (35.7-45.8 ) MCV 100.5 FL High (80.0-100. 0) MCH 33.2 pg (27.0-34.0 ) MCHC 33.0 g/dL (33.0-37.0 ) PLT 210 K/MM3 (150-460) RDW-SD 44.8 FL (<47.0) MPV 10.6 FL (9.4-12.4) Automated NRBC 0.0 #/100WBC'S Abs. NRBC 0.0 K/MM3 Neut # 1.5 K/MM3 (1.3-7.0) Lymph # 1.2 K/MM3 (0.8-3.1) [place]# 0.3 K/MM3 Low (0.4-0.9) Eo # 0.0 K/MM3 (0.0-0.4) Baso # 0.0 K/MM3 (0.0-0.1) Abs. Imm Gran 0.0 K/MM3 Neut 48.5 % (44-76) Lymph 39.2 % (15-43) Monocyte 9.8 % (4.5-10.5) Eo 1.3 % (0-6) Baso 0.9 % (0-2) Imm Gran 0.3 % TSH With Reflex To FT4 08/30/2022 [facility] TSH With Reflex To FT4 4.77 uIU/mL High (0.4-4.2) Urine Dipstick 08/30/2022 [facility] Appear/Color LIGHT YELLOW 13 SP. [place] 1.021 (1.002-1.0 30) Urine PH 7.0 (5.0-8.0) Urine Albumin TRACE Abnormal (Neg) Urine Glucose NEGATIVE (Neg) Urine Ketones NEGATIVE (Neg) Urobilinogen NORMAL mg/dL (Norm) Urine Bilirubin NEGATIVE (Neg) Urine Hemoglobin NEGATIVE (Neg) Urine Nitrite NEGATIVE (Neg) Urine Leukocyte NEGATIVE (Neg) Clarity CLEAR (Clear) Free T4 08/30/2022 [facility] Free T4 0.85 ng/dL (0.70-1.80 ) Culture Urine 08/30/2022 [facility] Specimen Description URINE CLEAN CATC <SEE NOTE> 14 Special Requests NONE Culture <10,000 COL/ML Abnormal Report Status FINAL 08/31/2022 15 Culture Urine 03/30/2022 [facility] Specimen Description URINE CLEAN CATC <SEE NOTE> 16 Special Requests NONE Culture >100,000 COL/ML <SEE NOTE> Abnormal 17 Report Status FINAL 04/02/2022 18 1 STANDING ORDER WEEKL YPRN 2 STANDING ORDER WEEKL YPRN 3 SRC:UC 4 Microscopic was william cated and was performed. 5 Source of Specimen: UC 6 Source of Specimen: UC Mixed urogenital flakita 10,000-25,000 colony forming units per mL 7 Creatinine based est imated glomerular filtration (eGFR) in adults is calculated using the [employer] recommended 2020 CKD-EPI equation. Estimates GFR from serum creatinine, age and sex. 8 CLEAR 9 URINE CLEAN CATCH/ME DSTREAM 10 10-50,000 COL/ML ESC HERICHIA COLI This isolate was identified using Maldi-TOF system These AST results were performed on the [employer] ID and AST system 11 FINAL 01/05/2023 ORGANISM 10-50,000 COL/ML ESCHERICHIA COLI This isolate was identified using Maldi-TOF system These AST results were performed on the Microscan ID and AST system METHOD MIN. INHIB. CONC. (MCG/ML) AMOXICILLIN/CLAVULAN SUSCEPTIBLE AMPICILLIN SUSCEPTIBLE AMPICILLIN/SULBACTAM SUSCEPTIBLE CEFAZOLIN SUSCEPTIBLE CEFEPIME SUSCEPTIBLE CEFTRIAXONE SUSCEPTIBLE CIPROFLOXACIN SUSCEPTIBLE ERTAPENEM SUSCEPTIBLE GENTAMICIN SUSCEPTIBLE LEVOFLOXACIN SUSCEPTIBLE MEROPENEM SUSCEPTIBLE NITROFURANTOIN SUSCEPTIBLE PIPERACILLIN/TAZOBAC SUSCEPTIBLE TETRACYCLINE SUSCEPTIBLE TRIMETH/SULFAMETHOX SUSCEPTIBLE 12 Creatinine based est imated glomerular filtration (eGFR) in adults is calculated using the National [employer] recommended 2020 CKD-EPI equation. Estimates GFR from serum creatinine, age and sex. 13 CLEAR 14 URINE CLEAN CATCH/ME DSTREAM 15 FINAL 08/31/2022 16 URINE CLEAN CATCH/ME DSTREAM 17 >100,000 COL/ML ESCH ERICHIA COLI These AST results were performed on the Microscan ID and AST system 18 FINAL 04/02/2022 ORGANISM >100,000 COL/ML ESCHERICHIA COLI These AST results were performed on the Microscan ID and AST system METHOD MIN. INHIB. CONC. (MCG/ML) AMPICILLIN SUSCEPTIBLE AMPICILLIN/SULBACTAM SUSCEPTIBLE AMOXICILLIN/CLAVULAN SUSCEPTIBLE CEFAZOLIN SUSCEPTIBLE CEFEPIME SUSCEPTIBLE CEFTRIAXONE SUSCEPTIBLE CIPROFLOXACIN SUSCEPTIBLE ERTAPENEM SUSCEPTIBLE GENTAMICIN SUSCEPTIBLE LEVOFLOXACIN SUSCEPTIBLE MEROPENEM SUSCEPTIBLE NITROFURANTOIN SUSCEPTIBLE PIPERACILLIN/TAZOBAC SUSCEPTIBLE TRIMETH/SULFAMETHOX SUSCEPTIBLE TETRACYCLINE SUSCEPTIBLE Procedures Date Code Description Status 09/15/2024 78096 Electrocardiogram Complete C ompleted 03/11/2024 21553 Collection Of Venous Blood B y Venipuncture Completed 08/21/2023 89914 Collection Of Venous Blood B y Venipuncture Completed 03/14/2023 30240 Electrocardiogram Complete C ompleted 03/14/2023 33354 Collection Of Venous Blood B y Venipuncture Completed Medical Devices Description No Information Available Encounters Type Date Location Provider Dx Diagnosis Office Visit 10/02/2024 2:30p Main Office Florecita Hernandez M.D. D68.51 Activated protein C resistance I26.99 Other pulmonary embo lism without acute cor pulmonale Assessments Date Code Description Provider 10/02/2024 D68.51 Factor V Leiden mutation Dian Hernandez M.D. 10/02/2024 I26.99 Other pulmonary embolism without acute cor pulmonale Florecita Hernandez M.D. Plan of Treatment Future Appointment(s):* 01/30/2025 3:15 pm - Florecita Hernandez M.D. at Main Office * 01/22/2025 10:45 am - Florecita Hernandez M.D. at Main Office 10/02/2024 - Florecita Hernandez M.D.* D68.51 Factor V Leiden mutation * I26.99 Other pulmonary embolism without acute cor pulmonale Functional Status Description No Information Available Mental Status Description No Information Available Referrals Refer to Dr Reason for Referral Status Appt [facility] Hip Pain Created [address] [place] [address] [phone] [facility] amaurosis fugax right eye Pa tient Declined [address] [facility] [phone] Adolfo Clifton MD right hip osteoarthritis Closed 03/02/[address] [place] [address] [phone]
== END 2024-12-02 08:21 | disposition home or self-care (01) ==
LOC: HO.HOSX 08:20
PROVIDERS: Visit Provider Orthopaedic Surgery
DX: M25.551 Pain in right hip (principal)
CPT/HCPCS: 73502

== ENCOUNTER 2024-12-07 08:15 | Outpatient (REF) | payer MEDICARE, SELFPAY ==
--- NOTE | ~2024-12-07 | MR_ITS ---
CLINICAL HISTORY: M54.50 - Low back pain, unspecified MR lumbar spine without gadolinium Comparison: None Findings: Multilevel disc dehydration and narrowing (the latter most conspicuous and severe at L2/L3 level). Posterior annular disc fissures noted at a few of the lumbar levels. Mild Modic type 1 changes at L2/L3. Grade 1 listhesis at a few levels. No acute fracture. No marrow infiltration. Conus terminates at L1 is unremarkable. Unremarkable cauda equina. Moderate left iliopsoas muscle atrophy. Bilateral parapelvic renal cysts. Susceptibility artifacts at level of right hip/proximal femur likely due to hardware. Correlate clinically. L5/S1: Grade 1 degenerative retrolisthesisy associated with mild to moderate right lateral recess compromise, mild compromise of the transverse dimension thecal sac, and mild bilateral neural foraminal stenosis. Small left paraspinal synovial/ganglion cyst. L4/L5: Grade 1 degenerative retrolisthesis associated with dmql-jx-jnonbbnj right and mild left lateral recess stenosis, ctod-ao-wicbegpv compromise of the transverse dimension thecal sac, and exsz-rw-lnquplay right neural foraminal stenosis. L3/L4: Grade 1 degenerative retrolisthesis associated with mild left lateral recess as well as mild left neural foraminal compromise. L2/L3: Grade 1 degenerative retrolisthesis associated with mild left lateral recess stenosis. L1/L2: Mild disc bulge associated with mild right lateral recess stenosis. T12/L1: Small right central disc protrusion. IMPRESSION: Uuxe-tq-voyvrnxc degenerative central canal compromise at L4/L5 and L5/S1. Mild degenerative lateral recess and neural foraminal stenosis at some levels. This document has been electronically signed by: Swetha Araya MD on 12/08/2024 13:30:27
== END 2024-12-07 08:16 | disposition home or self-care (01) ==
LOC: HO.MRI 08:15
PROVIDERS: Visit Provider Orthopaedic Surgery
DX: M54.50 Low back pain, unspecified (principal); M79.604 Pain in right leg
CPT/HCPCS: 72148

== ENCOUNTER → 2024-12-07 08:36 | Outpatient (BNV) | payer MEDICARE, SELFPAY | PROVIDERS: Visit Provider Radiology Diagnostic Radiology | DX: M54.50 Low back pain, unspecified (principal); M48.062 Spinal stenosis, lumbar region with neurogenic claudication | CPT/HCPCS: 72148 ==

== ENCOUNTER 2024-12-18 09:07 | Outpatient (AMB) | payer MEDICARE, SELFPAY ==
--- NOTE | 2024-12-18 09:13 | A.OFFVIS_ITS ---
Vital Signs 12/18/24 09:15 Height 5 ft 7 in Weight 143 lb BMI 22.4 Intake Visit Reasons: MRI Review Lower back Intake Note: Renate is a 74 year old female who presents with complaints of progressively worsening low back pain which radiates into her right groin and right leg. The patient did undergo right total hip replacement surgery by Dr. White on 04/05/2023. She states that she did fairly well from that surgery initially. Her pain as well as associated right leg weakness have gotten worse over the last year. She has taken Tylenol which gives her minimal relief. She is not able to take anti-inflammatory medicines because she is on Eliquis. The patient states that she has been limping because of weakness in her right leg. She has tried physical therapy exercises as well as yoga which gave her minimal relief. She has failed the last 6 weeks of conservative treatment. Allergies No Known Allergies Allergy (Verified 12/18/24 09:15) Medication List - Last Reconciled 12/18/24 by Adolfo Clifton MD apixaban (Eliquis) 5 mg PO BID atorvastatin 10 mg PO DAILY fluoxetine 20 mg PO DAILY Physical Exam Vital Signs: BMI result Body Mass Index 22.4 Back/Spine/Pelvis Other: Lumbar spine examination shows right-sided paraspinal muscle tenderness, pain with range of motion, positive straight leg raise test on the right at 70 degrees Results Reviewed Results Reviewed: MRI of the patient's lumbar spine shows ?degenerative central canal compromise, degenerative lateral recess and neural foraminal stenosis? Assessment & Plan Assessment & Plan (1) Low back pain radiating to right leg: Code(s): M54.50 - Low back pain, unspecified; M79.604 - Pain in right leg Category: Medical (2) Lumbar stenosis: Code(s): M48.061 - Spinal stenosis, lumbar region without neurogenic claudication Category: Medical Plan Ms. Lee presents with progressively worsening low back pain which radiates down her right leg as well as associated right leg weakness most likely due to l umbar stenosis. Thus, I will arrange for the patient to have an evaluation in our neurosurgery department. She will contact me prior to that appointment should her symptoms worsen in any way. I spent 22 minutes in reviewing the patient's records and imaging studies, seeing the patient and documenting in the medical record. Orders: Referrals Neuro Spine Referral M48.061 - Spinal stenosis, lumbar region without neurogenic claudication, M54.50 - Low back pain, unspecified, M79.604 - Pain in right leg Coding Level of Care Code Est Pt Level 3 (00922) Complex EM visit Add On G2211 Diagnoses Low back pain radiating to right leg M54.50; M79.604 Lumbar stenosis M48.061
[2024-12-18 09:15] VITALS: BMI 22.4
--- OUTSIDE RECORDS SUMMARY | 2024-12-18 09:23 | XMS_ITS | Data Portability ---
Author Organization [place] [facility] Birgit Adrian [facility] [place] Address [address] [place] [address] Care Team Providers Care Syrup Mixer Helper Name Role Phone TC DONG Referring Provider [phone] TC DONG Primary Care Provider [phone] Assessment Encounter Date Assessment Date Assessment LastModified by Organization Details LastModified Time 05/18/2023 05/18/2023 HPI : Patient is here for a 6 week follow-up from a right MARK. Overall, she is recovering well. There are still some minor issues. Some pain with her first few steps. This is improving. Her strength is coming back. Some weakness with hip flexion. Some numbness laterally. Physical Exam : Patient is well nourished, well- developed, in no acute distress, with appropriate mood and affect. The patient is AAOx3. The patient demonstrates good hip motion and strength. The incision is well healing. Assessment/Plan : The patient is functioning well 6 weeks from total hip arthroplasty. Continue home exercises. Return for follow-up in 2 months with x-rays at that time. Not available 05/18/2023 10:45:44 07/19/2023 07/19/2023 HPI : Patient is here for 3 month(s) follow-up for RIGHT total hip replacement. Patient reports good pain relief in the hip and satisfactory caodaism of function in terms of activities of daily living. Their condition is improved relative to their pre-operative condition. She complains of discomfort on standing if she has been seated and she reports feelings of weakness and instability. She states that it feels like it wants to go out on her. She has not had a fall. She reports having attended 2 PT sessions. There has been no new injury accident or trauma. Physical Exam : Patient is well nourished, well-developed, in no acute distress, with appropriate mood and affect. The patient is oriented to time, place, and person. There is no inguinal adenopathy. The operative limb is well-perfused, with well healed skin incision. The patient demonstrates good hip motion, stability, and strength. There is no pain with ROM Muscle strength is normal. Distal NVMS checks are intact. X-Ray: 4 view x-ray study of right hip obtained during today's office encounter does not show any signs of implant related issues including loosening, malposition, instability, periprosthetic fracture, periosteal reaction or infection. Assessment/Plan : This patient is functioning well after total hip arthroplasty. Continue to work on hip conditioning exercises. Trqh-hdi-otgcbyv medications as needed. She is provided an order for physical therapy for the purpose of caodaism of strength, stability, and her confidence in the joint. The patient understands that ultimate failure may occur due to mechanical wear, loosening or breakage. Follow-up at 3 mo is recommended to assess for the possibility of failure. Follow up sooner with any problems. A total of minutes were spent reviewing previous charting, obtaining history and physical exam, and reviewing treatment plan. This patient was seen and evaluated by Jean Claude Díaz MS, PA-C in indirect conjunction with documenting/super vising provider Konrad White MD. He agrees with history, physical examination, tests/diagnostic imaging, and treatment plan. [email or web address] Not available 07/19/2023 10:57:00 10/26/2023 10/26/2023 HPI : Patient is here for about 6-month follow-up from right total hip replacement. While she has some good days and overall she is functioning well, and thinks that she is improved compared to preoperatively, she does have some bad days and weeks. This is related to pain in the groin. This can be when getting up from a seated position, or when walking for periods of time. At times the pain can be significant. Advil brings her significant relief. Physical Exam : Patient is well nourished, well-developed, in no acute distress, with appropriate mood and affect. The patient is oriented to time, place, and person. Respirations are even and unlabored. There is no inguinal adenopathy. Examination of the contralateral hip shows normal range of motion, strength, no tenderness, and intact skin. The operative limb is well-perfused, with well healed skin incision. The patient demonstrates good hip motion, stability, and strength. There is no pain with ROM Muscle strength is normal. Mild pain with resisted hip flexion. Pedal pulses are palpable. Assessment/Plan : Patient is 6 months from right total hip replacement. While she has made improvements compared to preoperatively, she notes some persistent groin pain, which seems to be related to hip flexor tendinitis. We discussed this issue of hip flexor tendinitis following total hip replacement. We discussed the likely course and treatment strategies. Exam, imaging, and history do not show any signs of implant related issues including loosening, malposition, instability, periprosthetic fracture, or infection. We are going to get her ESR and CRP, to rule out PJI, low likelihood. If this is negative I would like to prescribe her an oral steroid course, to reduce the inflammation and hopefully give her longer relief. She will follow-up with me in 3 months, no x-rays needed at that time. Not available 10/26/2023 09:30:22 01/18/2024 01/18/2024 HPI : Patient is here for follow-up visit for her right total hip replacement. I saw her in October. She was having some pain is seem to be related to hip flexor tendinitis. Labs were negative for infection. I ordered her an oral steroid. Overall she notes improvement since her last visit. She is not 100% but she is getting better. She takes occasional Advil. She is noting continued progress. Physical Exam : Patient is well nourished, well-developed, in no acute distress, with appropriate mood and affect. The patient is oriented to time, place, and person. Respirations are even and unlabored. There is no inguinal adenopathy. Examination of the contralateral hip shows normal range of motion, strength, no tenderness, and intact skin. The operative limb is well-perfused, with well healed skin incision. The patient demonstrates good hip motion, stability, and strength. There is no pain with ROM Muscle strength is normal. Mild pain with resisted hip flexion. Pedal pulses are palpable. Assessment/Plan : Patient is 8 months from right total hip replacement. She still has some muscle related pain. This is slowly improving. We are going to continue to watch it. Continue hip conditioning and NSAIDs as needed. She will follow-up at 1 year from surgery with repeat x-rays of the right hip at that time. Not available 01/18/2024 10:46:44 04/18/2024 04/18/2024 HPI : Patient is here for 1 year follow-up from right total hip replacement. I last saw her in January. She was having some pain that seem to be hip flexor related pain. ESR and CRP were negative. Oral steroid was prescribed. She states this brought few weeks of relief but then the pain returned. She has had moments of and weeks where she has not had the pain, but then it returns. Overall it has been steady over the last few weeks. It is mild in nature. She is still able to do most of her activities. It is most significant when getting up from a seated position. Advil does give full relief. Physical Exam : Patient is well nourished, well-developed, in no acute distress, with appropriate mood and affect. The patient is oriented to time, place, and person. Respirations are even and unlabored. There is no inguinal adenopathy. Examination of the contralateral hip shows normal range of motion, strength, no tenderness, and intact skin. The operative limb is well-perfused, with well healed skin incision. The patient demonstrates good hip motion, stability, and strength. There is no pain with ROM Muscle strength is normal. There is some pain with resisted hip flexion. Pedal pulses are palpable. Assessment/Plan : This patient is functioning well after RIGHT total hip arthroplasty. She does have a component of mild hip flexor tendinitis. Continue to work on hip conditioning exercises. Cgjx-psd-vfadqhs medications as needed. Ultimate failure may occur due to mechanical wear, loosening or breakage. Follow-up is recommended to assess for the possibility of failure. She is going to monitor her symptoms. If they worsen she will follow-up, otherwise we will plan for routine follow-up at 5 years from surgery. Not available 04/18/2024 11:01:07 Plan of Treatment Reminders Order Date Submit Date Provider Last Modified By Organization Details Last Modified Time Details Appointments None recorded. Lab ESR (erythrocyt e sedimentati on rate), blood - Joint pain status post arthroplast y, evaluate for joint infection 2023 024 [email or web address] Not available 4 10:25:31 C-reactive protein, quantitativ e, serum or plasma - Joint pain status post arthroplast y, evaluate for joint infection 2023 024 [email or web address] Not available 4 12:51:05 Referral None recorded. Procedures None recorded. Surgeries None recorded. Imaging XR, hip, unilateral, 2 or 3 view 2023 024 [email or web address] [facility], [address], [place], [address], 4 10:57:10 XR, hip, unilateral, 2 or 3 view 2023 024 [facility], [address], [place], [address], 4 12:07:03 XR, hip, unilateral, 2 or 3 view 2023 024 [email or web address] [facility], [address], [place], [address], 4 12:08:09 Medication Orders None recorded. Patient TargetsNo targets recorded. Patient Instructions Encounter Date Encounter Id Patient Instructions Last Modified By Organization Details Last Modified Time 07/19/2023 [id number] physical therapy * - Diagnosis: Status post right-sided total hip arthroplasty Evaluate and treat as indicated to reduce pain and to improve mobility, range of motion, and function. *Restore strength and stability.* Please teach a home exercise plan and incorporate PT into patient's exercise routine. 2-3 sessions weekly for 6-8 weeks. [email or web address] Not available 07/26/2023 13:07:10 10/26/2023 [id number] AP pelvis, AP an d lateral radiographs of the right hip taken today demonstrate a right total hip replacement with components in appropriate position without any signs of hardware related complication. Not available 10/26/2023 09:30:51 04/18/2024 [id number] AP pelvis, AP an d lateral radiographs of the right hip taken today demonstrate a right total hip replacement with components in appropriate position without any signs of hardware related complication. There is a cemented femoral component. There is no change in component position compared to radiographs from last visit. Not available 04/18/2024 11:00:55 Reason for Referral None Reported. Results Created Date Observation Date Name Description Value Unit Range Abnormal Flag Note LastModifiedBy Organization Detail LastModifiedTime Result Notes None recorded. Problems Name Problem SNOMED Code Status Onset Date Resolution Date Notes Provider Name and Address Organization Details Recorded Time Osteoarthri tis of right hip joint 5968085782178 07 Active 2022 Konrad White MD [address], [place], [address], [place] [facility] 3 08:55:13 Arthritis of hip 96489138 Active 2022 Konrad White MD [address], [place], [address], [place] [facility], [facility] 3 08:55:23 History of total replacement of right hip joint 0475047877620 00 Active 2022 JEAN CLAUDE DÍAZ PA-C [address], [place], [address], [place] [facility], [facility] 3 09:37:33 Tendinitis of right hip 5026791608780 9104 Active 2023 Konrad White MD [address], [place], [address], [place] [facility], [facility] 4 09:28:27 Pain of right hip joint 9519765719069 02 Active 2023 Konrad White MD [address], [place], [address], [place] [facility] 4 11:27:36 Problem Notes None recorded. Procedures Surgical History Date Name Laterality Status Provider Name and Address Organization Details Recorded Time 04/05/20 TOTAL HIP ARTHROPLASTY (SURG) completed Jennifer Barraza [place] - [facility] 04/10/2023 09:57:56 Appendectomy completed Lennie Coleman [place] - [facility] 03/02/2023 08:36:35 ligation of fallopian tube completed [facility] 03/02/2023 08:36:44 Imaging Results None recorded. Procedure Notes None recorded. Medical Equipment None Reported. Allergies No known drug allergies Medications Name Sig Start Date Stop Date Status Note LastModified by Organization Details LastModified Time prednisone 10 mg tablet TAKE 3 TABLETS BY MOUTH DAILY FOR 4 DAYS, 2 TABLETS DAILY X 4, 1 TABLET DAILY X 4 01/17 completed Not Available Not Available Not Available atorvastati n 10 mg tablet active Not Available Not Available Not Available fluocinolon e 0.01 % topical cream APPLY TO AFFECTED AREAS OF ECZEMA ON FACE TWICE A DAY TWO WEEKS ON, ONE WEEK OFF AND USE NEEDED. active Not Available Not Available No t Available meloxicam 15 mg tablet 05/18 completed Not Available Not Available Not Available sulfamethox azole 800 mg-trimetho prim 160 mg tablet TAKE 1 TABLET BY MOUTH TWICE A DAY FOR 7 DAYS active Not Available Not Available No t Available ondansetron 8 mg disintegrat ing tablet active Not Available Not Available N ot Available methocarbam ol 750 mg tablet 05/18 completed Not Available Not Available Not Available triamcinolo ne acetonide 0.1 % topical ointment APPLY TWICE A DAY DIRECTED TO ECZEMATOU S PATCHES active Not Available Not Available No t Available fluoxetine 20 mg capsule active Not Available Not Available Not Available oxycodone 5 mg tablet 05/18 completed Not Available Not Available Not Available neomycin 3.5 mg/g-polymy roni B 10,000 unit/g-dexa meth 0.1 % eye oint APPLY 1/4 INCH STRIP INTO BOTH EYES AT BEDTIME UP TO THREE TIMES A DAY. active Not Available Not Available No t Available enoxaparin 40 mg/0.4 mL subcutaneou s syringe INEJCT 40MG UNDER THE SKIN DAILY DIRECTED 01/17 completed Not Available Not Available Not Available Eliquis 2.5 mg tablet 05/18 completed Not Available Not Available Not Available turmeric active Not Available Not Avai lable Not Available Paxlovid 300 mg (150 mg x 2)-100 mg tablets in a dose pack 3 PILLS TWICE A DAY X 5 DAYS 04/16 completed Not Available Not Available Not Available Vitals Date Recorded Body height Body mass index (BMI) Body weight Provider Name and Address Organization Details Last Updated DateTime 10/26/2023 170.18 cm 23 kg/m2 91541.08 g Leobardo Baldwni [place] [facility] 10/26/2023 09:04:33 Date Recorded Body height Body mass index (BMI) Body weight Provider Name and Address Organization Details Last Updated DateTime 01/18/2024 170.18 cm 23.2 kg/m2 01639.67 g Renee Foster [facility] 01/18/2024 10:36:25 Date Recorded Body height Body mass index (BMI) Body weight Provider Name and Address Organization Details Last Updated DateTime 04/18/2024 170.18 cm 23.2 kg/m2 63261.67 g Lennie Coleman [facility], [facility] 04/18/2024 10:33:31 Date Recorded Body height Provider Name an d Address Organization Details Last Updated DateTime 05/18/2023 170.18 cm Lennie Coleman [facility] 05/18/2023 10:24:47 Social History None recorded. Functional Status Question Answer Note LastModified by Organizat ion Details LastModified Time Do you use any illicit or recreational drugs? No Information not available 03/02/2023 What is your level of alcohol consumption? Occasional Information not available 03/02/2023 Mental Status None recorded. Family History Nothing Reported. Medical History Condition Response Bleeding Disorder Y Gynecological HistoryNo gynecological history recorded. Obstetrics History GPAL:G 0 P 0 0 0 0 Past Encounters Encounter ID Performer Location Encounter Start Date Encounter Closed Date Diagnosis/Indication Diagnosis SNOMED-CT Code Diagnosis ICD10 Code Diagnosis Note [id number] MD DINORAH Gordonrowena [address] [place] [address] 03/02/2023 08:21:04 03/02/2023 09:04:15 Pain of right hip joint 6330084506 04284 M25.551 Osteoarthr itis of right hip joint 4631445006 32111 M16.11 Arthritis of hip 3558676 6 M13.859 [id number] SHELLIE BLANCA [place] [address] [facility] [address] [place] [address] 04/16/2023 09:10:46 04/16/2023 09:39:18 History of total replacement of right hip joint 1521073154 53713 Z96.641 [id number] MD DINORAH Gordon [address] [address] 05/18/2023 10:13:44 05/18/2023 10:54:06 History of total replacement of right hip joint 3501507229 10730 Z96.641 Aftercare 785913741 Z47. 1 [id number] SHELLIE BLANCA [address] [place] [address] 07/19/2023 10:26:50 07/19/2023 10:55:40 History of total replacement of right hip joint 8292371393 05057 Z96.641 [id number] MD DINORAH Gordon [address] [address] 10/26/2023 08:46:24 10/26/2023 09:25:12 Osteoarthritis of right hip joint 8342101328 01130 M16.11 History of total replacement of right hip joint 7393846503 22558 Z96.641 Tendinitis of right hip 3018699378 6076065 M76.891 Additional diagnosis detail: Hip tendinitis , right [id number] MD DINORAH Gordon [facility] [address] [address] 01/18/2024 10:28:50 01/18/2024 10:50:12 History of total replacement of right hip joint 3611732157 59723 Z96.641 Tendinitis of right hip 7831953022 0775535 M76.891 Additional diagnosis detail: Hip tendinitis , right [id number] MD DINORAH Gordonrowena [address] [address] 04/18/2024 10:30:30 04/18/2024 10:57:10 History of repair of hip joint 839012863 Z96.641 Health Concerns Section Related Observation LastModified by Organization Detai ls LastModified Time None Recorded Concern Status LastModified by Organization Details LastModified Time None Recorded Advance Directives Directive None Recorded Payers Insurance Date Sequence Insurance Name Policy Number Policy Zhang Covered Member ID Zhang Member ID Guarantor Name 04/18/2024 1 [facility] (MEDICARE REPLACEMENT/A DVANTAGE - PPO) [id number] Renate Lee [id number] Renate Lee OBGyn Episode No OBEpisode recorded.
--- OUTSIDE RECORDS SUMMARY | 2024-12-18 09:23 | XMS_ITS | Patient Health Record ---
Author Organization [facility] Address [address] [place] [address] [address] [place] [address] Care Team Providers Care Food Broker Name Role Phone ANGELA WATSON M.D., TC Primary Care Provid er Unavailable Naty Will Unavailable [phone] Allergies No Known Allergies Reason For Referral No Information Medications Medication SIG (Take, Route, Fr equency, Duration) Notes Start Date End Date Status Vitamin D3 1000 IU ORAL daily; Duration: -3 Manan-MJ 2012 Active Calcium 1 tab Oral Active Flaxseed Oil 1000 MG as directed Orally Active Advil 200 MG 1 tablet with food o r milk as needed Orally Three times a day PRN Active FLUoxetine HCl 20MG 1 ORAL daily; Duration: -3 Manan-MJ Active Multivitamins 1 ORAL daily; Duration: -3 Manan-MJ 3 Active Social History Tobacco Use: Social History Observation Description Date Details (start date - stop date) Never Smoker NA - NA Tobacco Use/Smoking Question Answer Notes Are you a nonsmoker Problems Problem Type SNOMED Code ICD Code Onset Dates Problem Status W/U Status Risk Notes Problem Postmenopausal atrophic vaginitis (16133318) Postmenopausal atrophic vaginitis (N95.2) Active confirmed Problem Depressive disorder (63322528) Depressive disorder, not elsewhere classified (311) Active confirmed Major Problem Postmenopausal atrophic vaginitis (99017473) Postmenopausal atrophic vaginitis (627.3) Active confirmed Diag Problem Gynecological examination normal (849905765109193) Routine gynecological examination (V72.31) Active confirmed Problem Screening for malignant neoplasm of colon (569165926) Special screening for malignant neoplasms, colon (V76.51) Active confirmed Major Vital Signs Temperature 97.1 degrees Fahrenheit 01/24/2024 Blood pressure diastolic 70 mm Hg 01/24/2024 Height 67.5 in 01/24/2024 Blood pressure systolic 120 mm Hg 01/24/2024 Weight 147 lbs 01/24/2024 BMI 22.68 kg/m2 01/24/2024 Encounters Encounter Location Date Provider Diagnosis [facility] [address] [place] [address] 01/24/2024 Naty Will Encounter for screening mammogram for malignant neoplasm of breast Z12.31 ; Postmenopausal atrophic vaginitis N95.2 ; Encounter for gynecological examination (general) (routine) without abnormal findings Z01.419 and Dense breasts, unspecified R92.30 Assessments Encounter Date Diagnosis (ICD Code) Assessment Notes Treatment Notes Treatment Clinical Notes Section Notes 01/24/2024 Encounter for screening mammogram for malignant neoplasm of breast (ICD-10 - Z12.31) REGULAR MAMMOGRAMS AND SBE'S WERE RECOMMENDED. 01/24/2024 Postmenopausal atrophic vaginitis (ICD-10 - N95.2) DISCUSSED FINDINGS, DX AND TX OPTIONS. PAT IS ASYMPTOMATIC. 01/24/2024 Encounter for gynecological examination (general) (routine) without abnormal findings (ICD-10 - Z01.419) NO MORE PAP TESTS. 01/24/2024 Dense breasts, unspecified (ICD-10 - R92.30) DISCUSSED DENSE BREASTS ON MAMMOGRAM AND ITS IMPLICATIONS. 3D MAMMOGRAMS WERE RECOMMENDED. Plan Of Treatment Pending Test Test Name Order Date MAMMOGRAM, SCREENING 07/16/2014 MAMMOGRAM, SCREENING 01/18/2023 MAMMOGRAM, SCREENING 01/24/2024 MAMMOGRAM, SCREENING 08/30/2015 Urinalysis 07/16/2014 DIAGNOSTIC MAMMOGRAM, RIGHT BREAST 01/10 BONE DENSITY 01/16/2022 MM Digital Mammo Screening 01/18/2023 MM Digital Mammo Screening 01/16/2022 MM Digital Mammo Screening 10/16/2017 MM Digital Mammo Screening 01/07/2020 MM Digital Mammo Screening 01/24/2024 Right Breast Ultrasound 01/10/2021 Diagnostic Digital Mammo & Ultrasound, R ight 01/16/2022 DIGITAL SCREENING MAMMO LEFT BREAST 12/17 Next Appt Details Provider Name:Naty fermin, 01/29/2025 10:00:00 AM, [address] [facility], [address], [place], [address], Insurance Providers Payer Name Payer Address Payer Phone Subscriber Number Group Number Insured Name Patient Relationship to Insured Coverage Start Date Coverage End Date [facility] [employer] [address] [address] [place] [address] [id number] FRANSISCA PANG Self - patient is the insured Medical (General) History Medical History History ICD Code Postmenopausal atrophic vaginitis N95.2 Major depressive disorder, single episod e, unspecified F32.9 Inconclusive mammogram R92.2 Unspecified lump in the right breast, lo wer outer quadrant N63.13 Mammographic heterogeneous density, bila teral breasts R92.333 Surgical History Surgery Date(Month/Year) Colon Resection Colonoscopy Appendectomy Donald Teeth Extraction Bilateral Tubal Ligation R HIP SURGERY 03/2023 Hospitalization History Reason Date(Month/Year) See Surgical Hx 2 Vaginal Deliveries
--- OUTSIDE RECORDS SUMMARY | 2024-12-18 09:23 | XMS_ITS | Clinical Summary ---
Author Organization [address] Address [address] [place] [phone] Phone Care Team Providers Care Manager Diabetes Name Role Phone Florecita Hernandze MD Primary Care Provid er Allergies Active [...] mouth 1 (one) time each day. Active pflnjxxu-qnr-zq rrous sulfate 4.5 mg iron tablet Take [...] wi th single episode, in full remission ([facility] V24) 09/18/2024 09/18/2024 Other hyperlipidemia 09/18/2024 025 History of total right hip replacement 04/16/2023 09/18/2024 Osteoarthritis of right hip 03/02/2023 09/18/2024 Encounters Date Type Department Care Team Description 09/25/2024 Telephone [facility] Hematology Oncology [address] [place] [phone] Jamaal Cummins MD 09/24/2024 Telephone Gastroenterology - [address] [facility] [address] [place] [phone] Kana De La Cruz MD SPECIAL PROCEDURE 09/23/2024 11:00 AM EDT Telemedicine Vascular Surgery - [place] [address] [place] [phone] Marky Hunter MD PE (pulmonary thromboembolism) ([facility] V24, [facility] V28) (Primary Dx) 09/18/2024 9:45 AM EDT - 09/19/2024 2:31 PM EDT Hospital Encounter [facility] Intermediate Care Unit [address] [place] [phone] Blas Cedeño MD Seralathan, Manikandan, MD Acute pulmonary embolism without acute cor pulmonale, unspecified pulmonary embolism type ([facility] V24, [facility] V28) (Primary Dx); Positive D-dimer; PE (pulmonary thromboembolism) ([facility] V24, [facility] V28) Discharge Disposition: Home or Self Care from Last 3 Months Medical History Medical History Date Comments Other hyperlipidemia 09/18/2024 Major depressive disorder wi th single episode, in full remission ([facility] V24) 09/18/2024 History of total right hip [...] care for your loved ones. For example, rn maternal child or elderly care for an older adult? [...] 72 09/19/2024 11:18 AM EDT Temperature 37.1 C (98.7 F) 09/19/2024 11:18 AM EDT Respiratory Rate 20 09/19/2024 11:18 AM EDT [...] Name Priority Date/Time Associated Diagnosis Comments HEPARIN AND LOW MOLECULAR WEIGHT ANTI XA LEVEL Timed 09/19/2024 7:00 AM EDT HEPARIN AND LOW MOLECULAR WEIGHT ANTI XA LEVEL Timed 09/19/2024 5:07 AM EDT CBC WITH AUTO DIFFERENTIAL Routine 09/19/2024 5:07 AM EDT MAGNESIUM Routine 09/19/2024 5:07 AM EDT BASIC METABOLIC PANEL Routine 09/19/2024 5:07 AM EDT CBC AND DIFFERENTIAL Routine 09/19/2024 5:07 AM EDT HEPARIN AND LOW MOLECULAR WEIGHT ANTI XA LEVEL Timed 09/19/2024 3:24 AM EDT HEPARIN AND LOW MOLECULAR WEIGHT ANTI XA LEVEL STAT 09/19/2024 2:20 AM EDT ECG ANNOTATED 09/19/2024 HEPARIN AND LOW MOLECULAR WEIGHT ANTI XA LEVEL STAT 09/18/2024 7:16 PM EDT TRANSTHORACIC ECHOCARDIOGRAM [...] SENSITIVITY STAT 09/18/2024 10:42 AM EDT HEPARIN AND LOW MOLECULAR WEIGHT ANTI XA LEVEL STAT Add-on 09/18/2024 9:42 AM EDT PROTHROMBIN [...] AND DIFFERENTIAL STAT 09/18/2024 9:42 AM EDT from Last 3 Months Results * (ABNORMAL) Anti-Xa - Every 6 Hours (09/19/2024 7:00 AM EDT) Only the most recent of6 resultswithin the time period is included. Heparin Anti-Xa 0.99(H) 0.30 - 0.70 I Unit/mL LAB COAGULATION METHOD 09/19/2024 7:53 AM EDT [facility] Blood Venous blood specimen / Unknown Venipuncture / Unknown 09/19/2024 7:00 AM EDT 09/19/2024 7:34 AM EDT Narrative [facility] - 09/19/2024 7:53 AM EDT Therapeutic range listed is for Unfractionated Heparin. LMW Heparin therapeutic range: 0.50-1.20 IU/mL us Blas Cedeño MD LAB BLOOD ORDERABLES Final Re sult [facility] [address] [place] [address], * (ABNORMAL) CBC auto differential (09/19/2024 5:07 AM EDT) Only the most recent of2 resultswithin the time period is included. WBC 4.2(L) 4.8 - 10.8 K/mcL LAB HEMETOLOGY METHOD 09/19/2024 5:20 AM EDT [facility] RBC 3.70(L) 3.80 - 4.80 M/mcL LAB HEMETOLOGY METHOD 09/19/2024 5:20 AM EDT [facility] Hemoglobin 12.4 11.5 - 16.0 g/dL LAB HEMETOLOGY METHOD 09/19/2024 5:20 AM EDT [facility] Hematocrit 36.0 35.0 - 47.0 % LAB HEMETOLOGY METHOD 09/19/2024 5:20 AM [facility] MCV 97.6 79.0 - 98.0 FL LAB HEMETOLOGY METHOD 09/19/2024 5:20 AM [facility] MCH 33.6(H) 27.0 - 32.0 pcg LAB HEMETOLOGY METHOD 09/19/2024 5:20 AM [facility] MCHC 34.4 32.0 - 37.0 g/dL LAB HEMETOLOGY METHOD 09/19/2024 5:20 AM [facility] RDW 11.9 11.0 - 15.0 % LAB HEMETOLOGY METHOD 09/19/2024 5:20 AM [facility] Platelets 160 130 - 400 K/mcL LAB HEMETOLOGY METHOD 09/19/2024 5:20 AM [facility] MPV 10.3 7.0 - 11.0 FL LAB HEMETOLOGY METHOD 09/19/2024 5:20 AM [facility] NRBC 0.0 <1.0 % LAB HEMETOLOGY METHOD 09/19/2024 5:20 AM [facility] NRBC Absolute 0.00 <0.10 K/mcL LAB HEMETOLOGY METHOD 09/19/2024 5:20 AM [facility] Neutrophils Relative 46.3 % LAB HEMETOLOGY METHOD 09/19/2024 5:20 AM [facility] Lymphocytes Relative 41.5 % LAB HEMETOLOGY METHOD 09/19/2024 5:20 AM [facility] Monocytes Relative 8.6 % LAB HEMETOLOGY METHOD 09/19/2024 5:20 AM [facility] Eosinophils Relative 2.9 % LAB HEMETOLOGY METHOD 09/19/2024 5:20 AM [facility] Basophils Relative 0.7 % LAB HEMETOLOGY METHOD 09/19/2024 5:20 AM EDT [facility] Immature Granulocytes Relative 0.0 % LAB HEMETOLOGY METHOD 09/19/2024 5:20 AM EDT [facility] Neutrophils Absolute 1.94 1.50 - 7.00 K/mcL LAB HEMETOLOGY METHOD 09/19/2024 5:20 AM EDT [facility] Lymphocytes Absolute 1.74 1.00 - 5.00 K/mcL LAB HEMETOLOGY METHOD 09/19/2024 5:20 AM EDT [facility] Monocytes Absolute 0.36 0.20 - 1.00 K/mcL LAB HEMETOLOGY METHOD 09/19/2024 5:20 AM EDT [facility] Eosinophils Absolute 0.12 0.00 - 0.50 K/mcL LAB HEMETOLOGY METHOD 09/19/2024 5:20 AM EDT [facility] Basophils Absolute 0.03 0.00 - 0.20 K/mcL LAB HEMETOLOGY METHOD 09/19/2024 5:20 AM EDT [facility] Immature Granulocytes Absolute 0.00 0.00 - 0.03 K/mcL LAB [facility]EM[facility]OLOGY [facility]24 [facility] Blood Venous blood specimen / Unknown Venipuncture / Unknown 09/19/2024 5:07 AM EDT 09/19/2024 5:14 AM EDT us Lynne DOWD LAB BLOOD ORDERABLES Final Re sult [facility] [address] [place] [address], * Magnesium (09/19/2024 5:07 AM EDT) Magnesium 2.2 1.9 - 2.6 mg/dL LAB CHEMISTRY METHOD 09/19/2024 5:41 AM [facility] Blood Venous blood specimen / Unknown Venipuncture / Unknown 09/19/2024 5:07 AM EDT 09/19/2024 5:14 AM EDT us Blas Cedeño MD LAB BLOOD ORDERABLES Final Re sult [facility] [address] [place] [address], * Basic metabolic panel (09/19/2024 5:07 AM EDT) Only the most recent of2 resultswithin the time period is included. Sodium 139 133 - 145 mmol/L LAB CHEMISTRY METHOD 09/19/2024 5:41 AM [facility] Potassium 3.9 3.5 - 5.5 mmol/L LAB CHEMISTRY METHOD 09/19/2024 5:41 AM [facility] Chloride 107 96 - 110 mmol/L LAB CHEMISTRY METHOD 09/19/2024 5:41 AM [facility] CO2 27 21 - 32 mmol/L LAB CHEMISTRY METHOD 09/19/2024 5:41 AM [facility] Anion Gap 5 3 - 11 LAB CHEMISTRY METHOD 09/19/2024 5:41 AM [facility] Glucose 96 70 - 100 mg/dL LAB CHEMISTRY METHOD 09/19/2024 5:41 AM [facility] BUN 18 5 - 25 mg/dL LAB CHEMISTRY METHOD 09/19/2024 5:41 AM [facility] Creatinine 0.93 0.50 - 1.10 mg/dL LAB CHEMISTRY METHOD 09/19/2024 5:41 AM [facility] eGFR 65 >=60 mL/min/1. 73m2 LAB CHEMISTRY METHOD 09/19/2024 5:41 AM EDT [facility] Comment:Calculation based on the Chronic Kidney Disease Epidemiology Collaboration (CKD-EPI) equation refit without adjustment for race. BUN/Creatinine Ratio 19.4 LAB CHEMISTRY METHOD 09/19/2024 5:41 AM EDT [facility] Calcium 8.8 8.5 - 10.5 mg/dL LAB CHEMISTRY METHOD 09/19/2024 5:41 AM EDT [facility] Blood Venous blood specimen / Unknown Venipuncture / Unknown 09/19/2024 5:07 AM EDT 09/19/2024 5:14 AM EDT us Lynne DOWD LAB BLOOD ORDERABLES Final Re sult [facility] [address] [place] [address], [place] [phone] * ECG-Annotated (09/19/2024) us Provider Onbase MD ECG ORDERABLES Final Result * (ABNORMAL) TRANSTHORACIC ECHOCARDIOGRAM (TTE) COMPLETE (09/18/2024 3:18 PM EDT) Left Atrium Major [place] 4.5 cm CV PACS LA Area Sys [...] S' 13 cm/s CV PACS RA Major [place] 4.4 cm CV PACS RA Major [place] Index 2.5 2.2 - 2.8 cm/m2 CV PACS MV PHT 69 ms CV PACS LVIDS 2.7 2.2 - 3.5 cm CV PACS LVIDS Index 1.53 cm/m2 CV PACS FS 44 % CV PACS Anatomical Region Laterality Modality Ultrasound Narrative 09/18/2024 3:51 PM EDT 1. Normal biventricular size and systolic function. Normal left ventricular regional wall motion with an ejection fraction of 60 to 65%. 2. No hemodynamically significant valve disease. 3. Normal left ventricular diastolic function. Normal pulmonary artery systolic pressure. Technically adequate, 2D, [...] PM EDT FINDINGS/IMPRESSION: No consolidation or effusion. Normal heart size without congestive heart failure. Pleural parenchymal scarring at the apices. Mild degenerative changes. -------- FINAL REPORT -------- Dictated By: Jan Cherry Dictated Date: 09/18/2024 15:07 ET Assigned Physician: Jan Cherry Reviewed and Electronically Signed By: Jan Cherry Signed Date: 09/18/2024 15:08 ET Workstation ID: [id number] Transcribed By: Self Edit Transcribed Date: 09/18/2024 [...] Signed Date: 09/18/2024 15:08 ET Workstation ID: [id number] Transcribed By: Self Edit Transcribed Date: 09/18/2024 [...] signing. -------- FINAL REPORT -------- Dictated By: MARGARITA LIAO Dictated Date: 09/18/2024 11:55 ET Assigned Physician: MARGARITA LIAO Reviewed and Electronically Signed By: MARGARITA LIAO Signed Date: 09/18/2024 11:59 ET Workstation ID: [id number] Transcribed By: Self Edit Transcribed Date: 09/18/2024 11:55 ET Narrative 09/18/2024 11:59 AM EDT PROCEDURE: Chest CTA INDICATION: Pulmonary embolism, elevated d-dimer TECHNIQUE: Chest CTA with intravenous administration of 75cc ISOVUE-370. Multi planar reformats were created and interpreted. The examination was performed utilizing dose reduction techniques.3-D or MIP images were produced with postprocessing on an independent computer workstation. Total DLP 175 COMPARISON: No priors available. FINDINGS: LUNGS/PLEURA: Central airways are patent. Biapical pleural-parenchymal scarring. No consolidation, pleural effusion, or pneumothorax. MEDIASTINUM: There are extensive bilateral pulmonary arterial emboli throughout the pulmonary arteries with clot burden more pronounced on the right. No CT evidence of right heart strain. Cardiac chambers are normal in size. No pericardial effusion. Thoracic aorta is normal in size. No dissection. No mediastinal or hilar lymphadenopathy. Esophagus is patulous. Small, heterogeneous thyroid gland, not well assessed by CT. CHEST WALL: No axillary lymphadenopathy or superficial hematoma. UPPER ABDOMEN:Multiple hepatic cysts. BONES: No acute fracture. Scattered degenerative changes seen throughout the bones. Procedure Note Margarita Liao MD - 09/18/2024 PROCEDURE: Chest CTA [...] reportsigning. -------- FINAL REPORT -------- Dictated By: MARGARITA LIAO Dictated Date: 09/18/2024 11:55 ET Assigned Physician: MARGARITA LIAO Reviewed and Electronically Signed By: MARGARITA LIAO Signed Date: 09/18/2024 11:59 ET Workstation ID: [id number] Transcribed By: Self Edit Transcribed Date: 09/18/2024 11:55 ET us Lb DOWD IMG CT PROCEDURES Final R esult * Vascular US Duplex Lower Extremity Venous Bilateral (09/18/2024 11:18 AM EDT) Anatomical Region Laterality Modality Vascular, Abdomen Ultrasound 09/18/2024 11:5 4 AM EDT Impressions 09/18/2024 11:55 AM EDT NO RIGHT OR LEFT LOWER EXTREMITY DEEP VENOUS THROMBOSIS. -------- FINAL REPORT -------- Dictated By: MARGARITA LIAO Dictated Date: 09/18/2024 11:54 ET Assigned Physician: MARGARITA LIAO Reviewed and Electronically Signed By: MARGARITA LIAO Signed Date: 09/18/2024 11:55 ET Workstation ID: [id number] Transcribed By: Self Edit Transcribed Date: 09/18/2024 11:54 ET Narrative 09/18/2024 11:55 AM EDT PROCEDURE: VAS US DUPLEX LOWER EXT VENOUS BILAT INDICATION: Pain TECHNIQUE: 2-D and color Doppler imaging of the lower extremity venous vasculature with compression and augmentation maneuvers. COMPARISON: No priors available. FINDINGS: RIGHT: There is normal flow, compression, and augmentation from the common femoral through the popliteus. Visualized calf veins are patent LEFT: There is normal flow, compression, and augmentation from the common femoral through the popliteus. Visualized calf veins are patent Procedure Note Margarita Liao MD - 09/18/2024 PROCEDURE: VAS US [...] THROMBOSIS. -------- FINAL REPORT -------- Dictated By: MARGARITA LIAO Dictated Date: 09/18/2024 11:54 ET Assigned Physician: MARGARITA LIAO Reviewed and Electronically Signed By: MARGARITA LIAO Signed Date: 09/18/2024 11:55 ET Workstation ID: [id number] Transcribed By: Self Edit Transcribed Date: 09/18/2024 11:54 ET us Lb DOWD CV VASCULAR PROCEDURES Fi nal Result * Troponin I high sensitivity (09/18/2024 10:42 AM EDT) Only the most recent of2 resultswithin the time period is included. High Sensitivity Troponin I 3 <=54 ng/L LAB CHEMISTRY METHOD 09/18/2024 11:23 AM EDT [facility] Blood Venous blood specimen / Unknown Venipuncture / Unknown 09/18/2024 10:42 AM EDT 09/18/2024 10:55 AM EDT Narrative [facility] - 09/18/2024 11:23 AM EDT High levels of biotin in samples may falsely decrease hsTroponin values. Use caution when interpreting hsTroponin results in patients taking biotin who exhibit renal impairment (eGFR <60) or in patients taking more than 20 mg/day of biotin. us Blas Cedeño MD LAB BLOOD ORDERABLES Final Re sult Performing Organization Address City/[facility]/ZIP Co de Phone Number [facility] [address] [place] [address], * APTT (09/18/2024 9:42 AM EDT) Pathologist [facility] aPTT 27.8 24.1 - 39.3 sec LAB COAGULATION METHOD 09/18/2024 9:59 AM EDT [facility] Blood Venous blood specimen / Unknown Venipuncture / Unknown 09/18/2024 9:42 AM EDT 09/18/2024 9:47 AM EDT us Blas Cedeño MD LAB BLOOD ORDERABLES Final Re sult [facility] [address] [place] [address], * Prothrombin Time with INR - STAT (09/18/2024 9:42 AM EDT) Protime 11.5 10.6 - 13.9 sec LAB COAGULATION METHOD 09/18/2024 1:58 PM EDT [facility] INR 0.9 LAB COAGULATION METHOD 09/18/2024 1:58 PM EDT [facility] Blood Venous blood specimen / Unknown Venipuncture / Unknown 09/18/2024 9:42 AM EDT 09/18/2024 9:47 AM EDT Lb DOWD LAB BLOOD ORDERABLES Day l Result Performing Organization Address [facility]/ZIP Co de Phone Number [facility] [address] [place] [address], [place] [phone] * B-type natriuretic peptide (09/18/2024 9:42 AM EDT) Pathologist [facility] BNP 46 <=100 pcg/mL LAB CHEMISTRY METHOD 09/18/2024 10:27 AM EDT [facility] Blood Venous blood specimen / Unknown Venipuncture / Unknown 09/18/2024 9:42 AM EDT 09/18/2024 9:47 AM EDT Blas Cedeño MD LAB BLOOD ORDERABLES Final Re sult Performing Organization Address [facility] Co de Phone Number [facility] [address] [place] [address], [place] [phone] * Lipase (09/18/2024 9:42 AM EDT) Pathologist [facility] Lipase 36 13 - 75 unit/L LAB CHEMISTRY METHOD 09/18/2024 11:47 AM EDT [facility] Blood Venous blood specimen / Unknown Venipuncture / Unknown 09/18/2024 9:42 AM EDT 09/18/2024 9:47 AM EDT Lb DOWD LAB BLOOD ORDERABLES Day l Result Performing Organization Address City/[facility]/ZIP Co de Phone Number [facility] [address] [place] [address], [place] [phone] * Hepatic function panel (09/18/2024 9:42 AM EDT) Total Protein 6.6 6.0 - 8.0 g/dL LAB CHEMISTRY METHOD 09/18/2024 12:52 PM EDT [facility] Albumin 3.7 3.2 - 5.0 g/dL LAB CHEMISTRY METHOD 09/18/2024 12:52 PM EDT [facility] Total Bilirubin 0.5 0.0 - 1.4 mg/dL LAB CHEMISTRY METHOD 09/18/2024 12:52 PM T [facility] Bilirubin, Direct 0.2 0.0 - 0.3 mg/dL LAB CHEMISTRY METHOD 09/18/2024 12:52 PM T [facility] Bilirubin, Indirect 0.3 0.0 - 1.1 mg/dL LAB CHEMISTRY METHOD 09/18/2024 12:52 PM T [facility] ALT (SGPT) 23 10 - 60 unit/L LAB CHEMISTRY METHOD 09/18/2024 12:52 PM [facility] AST (SGOT) 29 10 - 42 unit/L LAB CHEMISTRY METHOD 09/18/2024 12:52 PM [facility] Alkaline Phosphatase 63 42 - 121 unit/L LAB CHEMISTRY METHOD 09/18/2024 12:52 PM T [facility] Blood Venous blood specimen / Unknown Venipuncture / Unknown 09/18/2024 9:42 AM EDT 09/18/2024 9:47 AM EDT us Lb DOWD LAB BLOOD ORDERABLES Day thomas Result [facility] [address] [place] [address], [place] [phone] from Last 3 Months Insurance [employer] [...] currently active code status orders. Care Teams Manager Diabetes Relationship Specialty Start Date End Date Florecita Hernandez MD [address] [place] [address] [address] [place] [phone] PCP - General Endocrinology 09/16/24
--- OUTSIDE RECORDS SUMMARY | 2024-12-18 09:23 | XMS_ITS | Continuity of Care Document ---
Author Organization [facility] 2 [facility] [address] [place] [address] Phone [phone] Care Team Providers Care Co Director Name Role Phone Florecita Hernandez M.D. Care Team Informati on Real Estate Recruiter [phone] Problems Active Problems Provider Date Heterozygous Factor [...] SIG Qnty Indications Order ing Provider Date Uqrpxph7sd Tablets Take 1 tablet by mouth twice a day, starting on September 29, 2024 180tabs Florecita Hernandez M.D. 09/26/2024 Atorvastatin Mkdhote87jw Tablets Take 1 Tablet By Mouth Daily 90tabs Florecita Hernandez M.D. 03/13/2024 Vbvwotw27fl/0.4ML Soln Prefill Syringe 40 mg sc qd as directed-4 pens 4ml Florecita Hernandez M.D. 08/21/2023 Triamcinolone Acetonide0.1% Ointment apply twice a day as directed to eczematous patches 45gm Florecita Hernandez M.D. 08/21/2023 Probiotic DailyCapsules 1 qd Florecita Hernandez M.D. 08/21/2023 Fluoxetine EWH15uv Capsules Take 1 Capsule By Mouth Daily 90caps Florecita Hernandez M.D. Fluocinolone Acetonide0.01% Cream Apply To Affected Areas Of Eczema On Face Twice A Day Two Weeks On, One Week Off Unknown Calcium Citrate+Q7455-8.25mg- mcg Tablets 3 by mouth daily Florecita Hernandez M.D. Vitamin U362ybf (2000 Ut) Capsules 1 by mouth every day Florecita Hernandez M.D. Multivitamin Adults 50+Adlt 50+ Tablets 1 by mouth every day Florecita Hernandez M.D. Eql Flaxseed [id number] Capsules 1 by mouth every day Florecita [...] 15.1 SEC High 9.2-11.4 CMP W/Egfr 09/16/[address] [address] Z#Other Observations <pending> CBC W/Auto Differential 09/16/[address] [address] [phone] White Blood Count Ser Auto CNT <pending> [...] <pending> TSH W/Reflex To Free T4 09/16/[address] [address] TSH Thyroid Stimulating Horm <pending> NT Probnp QN Ser/Plas 09/16/[address] [address] [phone] NT Probnp QN Ser/Plas <pending> D-Dimer Test 09/16/[address] [address] Z#Other Observations <pending> Urinalysis, Complete 04/01/2024 [facility] Specific [place] 1.014 1.005-1.03 0 3 pH 6.5 5.0-7.5 [...] Farhat 22 mg/dL 5-40 LDL Chol Calc ([facility]) 166 mg/dL High 0-99 LDL Calc Comment: [...] 1.4-7.0 Lymphs (Absolute) 0.9 x10E3/uL 0.7-3.1 Monocytes(Absol lumbee) 0.3 x10E3/uL 0.1-0.9 Eos (Absolute) 0.1 x10E3/uL [...] mm/hr 0-40 Complete Abc With Diff 08/21/2023 [facility] WBC 4.0 K/MM3 (4.0-11.0) [...] K/MM3 (1.3-7.0) Lymph # 1.3 K/MM3 (0.8-3.1) [place]# 0.3 K/MM3 Low (0.4-0.9) Eo # 0.1 K/MM3 (0.0-0.4) Baso # 0.0 K/MM3 (0.0-0.1) Abs. Imm Gran 0.0 K/MM3 Neut 55.8 % (44-76) Lymph 33.3 % (15-43) Monocyte 8.5 % (4.5-10.5) Eo 1.3 % (0-6) Baso 0.8 % (0-2) Imm Gran 0.3 % Complete Abc With Diff 03/14/2023 [facility] WBC 3.7 K/MM3 Low [...] K/MM3 (1.3-7.0) Lymph # 1.2 K/MM3 (0.8-3.1) [place]# 0.3 K/MM3 Low (0.4-0.9) Eo # 0.0 K/MM3 (0.0-0.4) Baso # 0.0 K/MM3 (0.0-0.1) Abs. Imm Gran 0.0 K/MM3 Neut 58.2 % (44-76) Lymph 31.3 % (15-43) Monocyte 8.9 % (4.5-10.5) Eo 0.5 % (0-6) Baso 0.8 % (0-2) Imm Gran 0.3 % TSH With Reflex To FT4 03/14/2023 [facility] TSH With Reflex To FT4 2.38 uIU/mL (0.4-4.2) Basic Metabolic Panel 03/14/2023 [facility] Glucose 97 mg/dL (70-99) BUN 17 mg/dL (8-23) Creatinine 0.8 mg/dL (0.5-1.0) Sodium 140 mmol/L (133-145) Potassium 5.3 mmol/L High (3.6-5.2) Chloride 103 mmol/L (98-107) Bicarbonate 28 mmol/L (22-29) Anion Gap 9 (4-17) Calcium 9.5 mg/dL (8.6-10.5) Estimated GFR Creatinine 78 ML/MIN/1.7 3M2 7 Urinalysis Complete 01/03/2023 [facility] Appear/Color DARK YELLOW 8 SP. [place] 1.005 (1.002-1.0 30) Urine PH 6.0 (5.0-8.0) Urine Albumin NEGATIVE (Neg) Urine Glucose NEGATIVE (Neg) Urine Ketones NEGATIVE (Neg) Urine Bilirubin 1+ Abnormal (Neg) Urine Hemoglobin NEGATIVE (Neg) Urine Nitrite POSITIVE Abnormal (Neg) Urine Leukocyte 2+ Abnormal (Neg) Urobilinogen 2 mg/dL Abnormal (Norm) Urine WBCs 45 /HPF High (0-5) Urine RBCs 1 /HPF (0-3) Bacteria SLIGHT HPF Abnormal (Neg) Culture Urine 01/03/2023 [facility] Specimen Description URINE CLEAN CATC <SEE NOTE> 9 Special Requests NONE Culture 10-50,000 COL/ML <SEE NOTE> Abnormal 10 Report Status FINAL 01/05/2023 11 Culture Urine 01/02/2023 [facility] Culture Urine <pending> Comprehensive Metabolic Panl 08/30/2022 [facility] Glucose 90 mg/dL (70-99) [...] 76 ML/MIN/1.7 3M2 12 Lipid Panel 08/30/2022 [facility] Cholesterol, Total 216 mg/dL High (<200) Triglyceride 131 mg/dL (<150) HDL Chol 63 mg/dL (>39) LDL Cholesterol, Calculated 127 mg/dL (0-130) Non HDL Cholesterol (Calc) 153 mg/dL (<160) Complete Abc With Diff 08/30/2022 [facility] WBC 3.2 K/MM3 Low [...] K/MM3 (1.3-7.0) Lymph # 1.2 K/MM3 (0.8-3.1) [place]# 0.3 K/MM3 Low (0.4-0.9) Eo # 0.0 K/MM3 (0.0-0.4) Baso # 0.0 K/MM3 (0.0-0.1) Abs. Imm Gran 0.0 K/MM3 Neut 48.5 % (44-76) Lymph 39.2 % (15-43) Monocyte 9.8 % (4.5-10.5) Eo 1.3 % (0-6) Baso 0.9 % (0-2) Imm Gran 0.3 % TSH With Reflex To FT4 08/30/2022 [facility] TSH With Reflex To FT4 4.77 uIU/mL High (0.4-4.2) Urine Dipstick 08/30/2022 [facility] Appear/Color LIGHT YELLOW 13 SP. [place] 1.021 (1.002-1.0 30) Urine PH 7.0 (5.0-8.0) Urine Albumin TRACE Abnormal (Neg) Urine Glucose NEGATIVE (Neg) Urine Ketones NEGATIVE (Neg) Urobilinogen NORMAL mg/dL (Norm) Urine Bilirubin NEGATIVE (Neg) Urine Hemoglobin NEGATIVE (Neg) Urine Nitrite NEGATIVE (Neg) Urine Leukocyte NEGATIVE (Neg) Clarity CLEAR (Clear) Free T4 08/30/2022 [facility] Free T4 0.85 ng/dL (0.70-1.80 ) Culture Urine 08/30/2022 [facility] Specimen Description URINE CLEAN CATC <SEE NOTE> 14 Special Requests NONE Culture <10,000 COL/ML Abnormal Report Status FINAL 08/31/2022 15 Culture Urine 03/30/2022 [facility] Specimen Description URINE CLEAN [...] and sex. 8 CLEAR 9 URINE CLEAN CATCH/NC DSTREAM 10 10-50,000 COL/ML ESC HERICHIA COLI This isolate was identified using Maldi-TOF system These AST results were performed on the [employer] ID and AST system 11 FINAL 01/05/2023 [...] and sex. 13 CLEAR 14 URINE CLEAN CATCH/NC DSTREAM 15 FINAL 08/31/2022 16 URINE CLEAN CATCH/NC DSTREAM 17 >100,000 COL/ML ESCH ERICHIA COLI [...] SUSCEPTIBLE Procedures Date Code Description Status 09/15/2024 57324 Electrocardiogram Complete C ompleted 03/11/2024 12955 Collection Of Venous Blood B y Venipuncture Completed 08/21/2023 14964 Collection Of Venous Blood B y Venipuncture Completed 03/14/2023 56710 Electrocardiogram Complete C ompleted 03/14/2023 46331 Collection Of Venous Blood B y Venipuncture [...] Reason for Referral Status Appt [facility] Hip Pain Created [address] [place] [address] [phone] [facility] amaurosis fugax right eye Pa tient Declined [address] [facility] [phone] Adolfo Clifton MD right hip osteoarthritis Closed 03/02/2023 [address] [facility] [address] [place] [address] [phone]
== END 2024-12-18 09:36 | disposition home or self-care (01) ==
LOC: HO.HOS 09:08
PROVIDERS: Visit Provider Orthopaedic Surgery
DX: M54.50 Low back pain, unspecified (principal); M79.604 Pain in right leg; M48.061 Spinal stenosis, lumbar region without neurogenic claudication
CPT/HCPCS: 99213; G2211

== ENCOUNTER → 2024-12-18 09:07 | Outpatient (BNVA) | payer MEDICARE, SELFPAY | PROVIDERS: Visit Provider Orthopaedic Surgery | DX: M79.604 Pain in right leg (principal); M54.50 Low back pain, unspecified; M48.061 Spinal stenosis, lumbar region without neurogenic claudication; Z79.899 Other long term (current) drug therapy | CPT/HCPCS: 99212 ==

== ENCOUNTER 2024-12-29 09:52 | Outpatient (AMB) | payer MEDICARE, SELFPAY ==
[2024-12-29 10:01] VITALS: BMI 22.4
--- NOTE | 2024-12-29 10:01 | A.SPINEOV_ITS ---
Vital Signs 12/29/24 10:01 Height 5 ft 7 in Weight 143 lb BMI 22.4 Intake Visit Reasons: low back pain Intake Note: Ms. Lee is here today c/c low back pain. Ordnance Engineer Required: No Allergies No Known Allergies Allergy (Verified 12/29/24 10:07) Physical Exam Vital Signs: BMI result Body Mass Index 22.4 Assessment & Plan Assessment & Plan (1) Right hip pain: Code(s): M25.551 - Pain in right hip Category: Medical Plan Dear dr Clifton, Thank you for referring Mrs Lee to our office today. She is a very nice 74-year-old female who underwent a right total hip replacement by Dr. White in March of 2023. Immediately after the surgery she was recovering and noticed a pain in her anterior hip compartment which radiates into her groin. At 1st she just thought it was some kind of recovery from the surgery because she had an anterior approach. By the time she got 2-3 months into her recovery she noticed that the surgical pain seemed to be going away but the groin pain was not. In fact she had increased range of motion in her hip as well as significant improvement in the hip pain that she had surgery 4, but this new discomfort just will not go away. She saw her surgeon in follow-up who reassured her that the x-rays looked okay. They sent her to physical therapy and she noticed that while she was doing therapy the pain would significantly increase when she was doing any kind of weight-bearing on her right leg and then would take the weight off her right leg. Also, when she would go from a position of hip flexion to hip extension such as going from a sitting to a standing position there would be an intense pain that would ultimately get better the more she would walk and move. She saw a surgeon in follow up again who told her that everything looked okay. She sought you out for a 2nd opinion, and because of development of some interval back pain, lumbar MRI was done in addition to hip x-rays. Hip x-rays show good positioning of the hardware, but lumbar MRI suggested that there could be some impingement in the back and the patient was referred to us for an evalu ation. She does very well with Advil, it almost completely takes the pain away, but recent development of a pulmonary embolus precludes her having this so she just takes Tylenol more less. She is very frustrated because the pain has not subsided whatsoever since the initial recovery from her hip surgery. She has no associated tingling or numbness or shooting pain down the leg. PMH: She is otherwise reasonably healthy with history of high cholesterol. The above-mentioned pulmonary embolus, currently on Eliquis. At the time she was diagnosed with multiple pulmonary emboli but she had no pulmonary complications or prolonged hospitalizations for this. She was having shortness of breath but that went away after she was initiated on blood thinners. Surgery for a volvulus repair in 2017 and the above-mentioned right total hip replacement. Other than that no significant cardiac disease, liver or kidney problems, endocrine disorders, infections etc.. Social hx: She does not smoke, drink or use any recreational drugs Medications: Eliquis, Lipitor, fluoxetine Allergies: None Physical exam: Awake alert oriented no acute distress, she is able to stand up out of a chair on her own, but when she attempts to weight bear on her right leg and shift her position back to the left leg, she can reproduce a pain that starts in the anterior portion just medial to where her incision is on her anterior hip and will radiate down into her groin into her inguinal area. She does localize little bit of pain in the right side of her low back over the SI joint area. This was not initially present when she was starting her hip surgery recovery but developed over the course of time. Strength is somewhat limited by pain with hip flexion but I do not detect any specific motor weakness. Internal and external rotation of the hip do not produce any significant pain. Positive finger Ketan sign. Imaging review: She is a lumbar MRI at [facility] showing multilevel degenerative disc disease. She has no significant central or foraminal stenosis however. Impression: 74-year-old female who developed anterior groin pain immediately after right total hip replacement in 2022. The pain has never gotten better and is associated with transitioning her weight on and off the leg. It improves when she walks and almost completely goes away the more she starts to mobilize. She has been reassured now by 2 separate orthopedic surgeons that the hip hardware looks great. In fact she corroborates this by saying her range of motion in her hip is improved significantly, she just plagued by this pain that will not go away. Her lumbar MRI shows multilevel degenerative disc disease but I do not see any meaningful compression of the nerves or stenosis on the imaging despite the radiology report. I will review with Dr. Wong but I do not think he is going to offer her surgery in light of the fact that the symptoms also get better when she walks which is not typical of stenosis. The timing of the symptoms also developed right at the moment of her hip replacement as well and there is nothing in the low back that looks like it is acute, rather it just looks like chronic arthritic degeneration. She did have a component of back pain and still does intermittently have it, but it is not the main feature of her symptom presentation. The only thing I can think of is that possibly there is some degree of SI joint irritation which is showing up as anterior groin pain when she puts her weight on the leg and then removes the weight off her leg shifting positions. Maybe something happened at the time of her surgery that caused it to become irritated. I am going to refer her to Dr. Dobson have him do a cortisone injection in the SI joint see if that yields any meaningful imp rovement. I will see her back after the injection. If Dr. Wong has any other thoughts I will update you. Thank you for allowing us to care for your patient. The total time spent with this visit with this patient was 45 minutes reviewing history, physical exam, lumbar imaging review, and implementation of treatment plan or further diagnostic testing Tex Wong MD,PhD [facility] Orders: Referrals Physiatry Referral M25.551 - Pain in right hip Coding Level of Care Code New Pt Level 4 (25051) Diagnoses Right hip pain M25.551
--- OUTSIDE RECORDS SUMMARY | 2024-12-29 10:26 | XMS_ITS | Clinical Summary ---
Author Organization [address] Address [address] [place] [phone] Phone Care Team Providers Care Computer Teacher Name Role Phone Florecita Hernandez MD Primary [...] mouth 1 (one) time each day. Active oukkxsnw-dpb-ht rrous sulfate 4.5 mg iron tablet Take [...] wi th single episode, in full remission ([facility] V24) 09/18/2024 09/18/2024 Other hyperlipidemia 09/18/2024 025 History of total right hip replacement 04/16/2023 09/18/2024 Osteoarthritis of right hip 03/02/2023 09/18/2024 Medical History Medical History Date Comments Other hyperlipidemia 09/18/2024 Major depressive disorder wi th single episode, in full remission ([facility] V24) 09/18/2024 History of total right hip replacement 3 Osteoarthritis of right hip 03/02/2023 Family History [...] Record ed Within the last 3 months, saira anand many times did you visit the emergency [...] care for your loved ones. For example, attendant children's institution or elderly care for an older adult? [...] 2024 05/05/2024, 03/19/2023, 03/28/2021, Additional history exists Influenza Vaccine (#1) 2025 , 03/19/2023, 03/28/2021, Additional history exists Falls Risk Assessment 09/18/2025 09/18/2024 Social Influencers of Health Screening 09/18/2025 09/18/2024 DTaP,Tdap,and Td Vaccines (3 - Td or Tdap) 05/05/2034 05/05/2024, 07/07/2013 Pneumococcal Vaccine: 50+ Years Completed 04/03/2017, 03/02/2016 Zoster Vaccines Completed 06/16/2018, 03/18, 03/02/2016 HIB Vaccines Aged Out No longer eligi [...] on patient[place] [address] [employer] MEDICARE Advance Directives * Full [...] currently active code status orders. Care Teams Computer Teacher Relationship Specialty Start Date End Date Florecita Hernandez MD [address] [place] [address] [address] [place] [address] PCP - General Endocrinology 09/16/24
--- OUTSIDE RECORDS SUMMARY | 2024-12-29 10:26 | XMS_ITS | Continuity of Care Document ---
Author Organization [facility] 2 [facility] [address] [place] [address] Phone [phone] Care Team Providers Care Plastic Parts Designer Name Role Phone Florecita Hernandez M.D. Care Team Informati on Director Of Critical Care [phone] Problems Active Problems Provider Date Heterozygous Factor [...] SIG Qnty Indications Order ing Provider Date Bzjicsj1tk Tablets Take 1 tablet by mouth twice a day, starting on September 29, 2024 180tabs Florecita Hernandez M.D. 09/26/2024 Atorvastatin Xlwvzoq08yk Tablets Take 1 Tablet By Mouth Daily 90tabs Florecita Hernandez M.D. 03/13/2024 Kziyjtx44yc/0.4ML Soln Prefill Syringe 40 mg sc qd as directed-4 pens 4ml Florecita Hernandez M.D. 08/21/2023 Triamcinolone Acetonide0.1% Ointment apply twice a day as directed to eczematous patches 45gm Florecita Hernandez M.D. 08/21/2023 Probiotic DailyCapsules 1 qd Florecita Hernandez M.D. 08/21/2023 Fluoxetine VQX71pv Capsules Take 1 Capsule By Mouth Daily 90caps Florecita Hernandez M.D. Fluocinolone Acetonide0.01% Cream Apply To Affected Areas Of Eczema On Face Twice A Day Two Weeks On, One Week Off Unknown Calcium Citrate+Z5405-3.25mg- mcg Tablets 3 by mouth daily Florecita Hernandez M.D. Vitamin K774axm (2000 Ut) Capsules 1 by mouth every day Florecita Hernandez M.D. Multivitamin Adults 50+Adlt 50+ Tablets 1 by mouth every day Florecita Hernandez M.D. Eql Flaxseed [id number] Capsules 1 by mouth every day Florecita [...] 15.1 SEC High 9.2-11.4 CMP W/Egfr 09/16/[address] [address] Z#Other Observations <pending> CBC W/Auto Differential 09/16/[address] [address] White Blood Count Ser Auto CNT <pending> [...] <pending> TSH W/Reflex To Free T4 09/16/[address] [address] TSH Thyroid Stimulating Horm <pending> NT Probnp QN Ser/Plas 09/16/[address] [address] NT Probnp QN Ser/Plas <pending> D-Dimer Test 09/16/[address] [address] Z#Other Observations <pending> Urinalysis, Complete 04/01/2024 [facility] Specific [place] 1.014 1.005-1.03 0 3 pH 6.5 5.0-7.5 [...] Farhat 22 mg/dL 5-40 LDL Chol Calc ([facility]) 166 mg/dL High 0-99 LDL Calc Comment: [...] mm/hr 0-40 Complete Abc With Diff 08/21/2023 [facility] WBC 4.0 K/MM3 (4.0-11.0) RBC [...] K/MM3 (1.3-7.0) Lymph # 1.3 K/MM3 (0.8-3.1) [place]# 0.3 K/MM3 Low (0.4-0.9) Eo # 0.1 K/MM3 (0.0-0.4) Baso # 0.0 K/MM3 (0.0-0.1) Abs. Imm Gran 0.0 K/MM3 Neut 55.8 % (44-76) Lymph 33.3 % (15-43) Monocyte 8.5 % (4.5-10.5) Eo 1.3 % (0-6) Baso 0.8 % (0-2) Imm Gran 0.3 % Complete Abc With Diff 03/14/2023 [facility] WBC 3.7 K/MM3 Low (4.0-11.0) [...] K/MM3 (1.3-7.0) Lymph # 1.2 K/MM3 (0.8-3.1) [place]# 0.3 K/MM3 Low (0.4-0.9) Eo # 0.0 K/MM3 (0.0-0.4) Baso # 0.0 K/MM3 (0.0-0.1) Abs. Imm Gran 0.0 K/MM3 Neut 58.2 % (44-76) Lymph 31.3 % (15-43) Monocyte 8.9 % (4.5-10.5) Eo 0.5 % (0-6) Baso 0.8 % (0-2) Imm Gran 0.3 % TSH With Reflex To FT4 03/14/2023 [facility] TSH With Reflex To FT4 2.38 uIU/mL (0.4-4.2) Basic Metabolic Panel 03/14/2023 [facility] Glucose 97 mg/dL (70-99) BUN 17 mg/dL (8-23) Creatinine 0.8 mg/dL (0.5-1.0) Sodium 140 mmol/L (133-145) Potassium 5.3 mmol/L High (3.6-5.2) Chloride 103 mmol/L (98-107) Bicarbonate 28 mmol/L (22-29) Anion Gap 9 (4-17) Calcium 9.5 mg/dL (8.6-10.5) Estimated GFR Creatinine 78 ML/MIN/1.7 3M2 7 Urinalysis Complete 01/03/2023 [facility] Appear/Color DARK YELLOW 8 SP. [place] 1.005 (1.002-1.0 30) Urine PH 6.0 (5.0-8.0) Urine Albumin NEGATIVE (Neg) Urine Glucose NEGATIVE (Neg) Urine Ketones NEGATIVE (Neg) Urine Bilirubin 1+ Abnormal (Neg) Urine Hemoglobin NEGATIVE (Neg) Urine Nitrite POSITIVE Abnormal (Neg) Urine Leukocyte 2+ Abnormal (Neg) Urobilinogen 2 mg/dL Abnormal (Norm) Urine WBCs 45 /HPF High (0-5) Urine RBCs 1 /HPF (0-3) Bacteria SLIGHT HPF Abnormal (Neg) Culture Urine 01/03/2023 [facility] Specimen Description URINE CLEAN CATC <SEE NOTE> 9 Special Requests NONE Culture 10-50,000 COL/ML <SEE NOTE> Abnormal 10 Report Status FINAL 01/05/2023 11 Culture Urine 01/02/2023 [facility] Culture Urine <pending> Comprehensive Metabolic Panl 08/30/2022 [facility] Glucose 90 mg/dL (70-99) BUN [...] 76 ML/MIN/1.7 3M2 12 Lipid Panel 08/30/2022 [facility] Cholesterol, Total 216 mg/dL High (<200) Triglyceride 131 mg/dL (<150) HDL Chol 63 mg/dL (>39) LDL Cholesterol, Calculated 127 mg/dL (0-130) Non HDL Cholesterol (Calc) 153 mg/dL (<160) Complete Abc With Diff 08/30/2022 [facility] WBC 3.2 K/MM3 Low (4.0-11.0) [...] K/MM3 (1.3-7.0) Lymph # 1.2 K/MM3 (0.8-3.1) [place]# 0.3 K/MM3 Low (0.4-0.9) Eo # 0.0 K/MM3 (0.0-0.4) Baso # 0.0 K/MM3 (0.0-0.1) Abs. Imm Gran 0.0 K/MM3 Neut 48.5 % (44-76) Lymph 39.2 % (15-43) Monocyte 9.8 % (4.5-10.5) Eo 1.3 % (0-6) Baso 0.9 % (0-2) Imm Gran 0.3 % TSH With Reflex To FT4 08/30/2022 [facility] TSH With Reflex To FT4 4.77 uIU/mL High (0.4-4.2) Urine Dipstick 08/30/2022 [facility] Appear/Color LIGHT YELLOW 13 SP. [place] 1.021 (1.002-1.0 30) Urine PH 7.0 (5.0-8.0) Urine Albumin TRACE Abnormal (Neg) Urine Glucose NEGATIVE (Neg) Urine Ketones NEGATIVE (Neg) Urobilinogen NORMAL mg/dL (Norm) Urine Bilirubin NEGATIVE (Neg) Urine Hemoglobin NEGATIVE (Neg) Urine Nitrite NEGATIVE (Neg) Urine Leukocyte NEGATIVE (Neg) Clarity CLEAR (Clear) Free T4 08/30/2022 [facility] Free T4 0.85 ng/dL (0.70-1.80 ) Culture Urine 08/30/2022 [facility] Specimen Description URINE CLEAN CATC <SEE NOTE> 14 Special Requests NONE Culture <10,000 COL/ML Abnormal Report Status FINAL 08/31/2022 15 Culture Urine 03/30/2022 [facility] Specimen Description URINE CLEAN CATC [...] and sex. 8 CLEAR 9 URINE CLEAN CATCH/WI DSTREAM 10 10-50,000 COL/ML ESC HERICHIA COLI This isolate was identified using Maldi-TOF system These AST results were performed on the [employer] ID and AST system 11 FINAL 01/05/2023 [...] and sex. 13 CLEAR 14 URINE CLEAN CATCH/WI DSTREAM 15 FINAL 08/31/2022 16 URINE CLEAN CATCH/WI DSTREAM 17 >100,000 COL/ML ESCH ERICHIA COLI [...] SUSCEPTIBLE Procedures Date Code Description Status 09/15/2024 48105 Electrocardiogram Complete C ompleted 03/11/2024 93600 Collection Of Venous Blood B y Venipuncture Completed 08/21/2023 72706 Collection Of Venous Blood B y Venipuncture Completed 03/14/2023 60542 Electrocardiogram Complete C ompleted 03/14/2023 33569 Collection Of Venous Blood B y Venipuncture [...] Reason for Referral Status Appt [facility] Hip Pain Created [address] [place] [address] [phone] [facility] amaurosis fugax right eye Pa tient Declined [address] [facility] [phone] Adolfo Clifton MD right hip osteoarthritis Closed 03/02/[address] [place] [address] [phone]
--- OUTSIDE RECORDS SUMMARY | 2024-12-29 10:26 | XMS_ITS | Data Portability ---
Author Organization [place] [facility] Birgit Adrian [place] Address [address] [place] [address] Care Team Providers Care Prosthetist Name Role Phone TC DONG Referring Provider TC DONG Primary Care Provider Assessment Encounter Date Assessment Date Assessment LastModified [...] pain relief in the hip and satisfactory protestant of function in terms of activities of [...] Continue to work on hip conditioning exercises. Oguo-ofs-bjtxxas medications as needed. She is provided an order for physical therapy for the purpose of protestant of strength, stability, and her confidence in [...] Continue to work on hip conditioning exercises. Jqet-bux-zjslsqq medications as needed. Ultimate failure may occur [...] view 2023 024 [email or web address] [facility], [address], [place], [address], 4 10:57:10 XR, hip, unilateral, 2 or 3 view 2023 024 [facility], [address], [place], [address], 4 12:07:03 XR, hip, unilateral, 2 or 3 view 2023 024 [email or web address] [facility], [address], [place], [address], 4 12:08:09 Medication Orders None recorded. Patient TargetsNo targets recorded. Patient Instructions Encounter Date Encounter Id Patient Instructions Last Modified By Organization Details Last Modified Time 07/19/2023 [id number] physical therapy * - Diagnosis: Status post right-sided total hip arthroplasty Evaluate and treat as indicated to reduce pain and to improve mobility, range of motion, and function. *Restore strength and stability.* Please teach a home exercise plan and incorporate PT into patient's exercise routine. 2-3 sessions weekly for 6-8 weeks. [email or web address] Not available 07/26/2023 13:07:10 10/26/2023 [id number] AP pelvis, AP an d lateral radiographs of the right hip taken today demonstrate a right total hip replacement with components in appropriate position without any signs of hardware related complication. Not available 10/26/2023 09:30:51 04/18/2024 [id number] AP pelvis, AP an d lateral radiographs [...] Time Osteoarthri tis of right hip joint 0878750127597 07 Active 2022 Konrad White MD [address], [place], [address], [place] [facility] 3 08:55:13 Arthritis of hip 90624482 Active 2022 Konrad White MD [address], [place], [address], [place] [facility], [facility] 3 08:55:23 History of total replacement of right hip joint 8871249379884 00 Active 2022 JEAN CLAUDE DÍAZ PA-C [address], [place], [address], [place] [facility] 3 09:37:33 Tendinitis of right hip 1800458601335 9104 Active 2023 Konrad White MD [address], [place], [address], [place] [facility], [facility] 4 09:28:27 Pain of right hip joint 8657515562706 02 Active 2023 Konrad White MD [address], [place], [address], [place] [facility] 4 11:27:36 Problem Notes None recorded. Procedures Surgical History Date Name Laterality Status Provider Name and Address Organization Details Recorded Time 04/05/20 TOTAL HIP ARTHROPLASTY (SURG) completed Jennifer Barraza [place] - [facility] 04/10/2023 09:57:56 Appendectomy completed Lennie Coleman [place] - [facility] 03/02/2023 08:36:35 ligation of fallopian tube completed [facility] - [facility] 03/02/2023 08:36:44 Imaging Results None recorded. [...] Updated DateTime 10/26/2023 170.18 cm 23 kg/m2 64959.08 g Leobardo Baldwin [place] - [facility] 10/26/2023 09:04:33 Date Recorded Body height Body mass index (BMI) Body weight Provider Name and Address Organization Details Last Updated DateTime 01/18/2024 170.18 cm 23.2 kg/m2 12156.67 g Renee Foster [facility] 01/18/2024 10:36:25 Date Recorded Body height Body mass index (BMI) Body weight Provider Name and Address Organization Details Last Updated DateTime 04/18/2024 170.18 cm 23.2 kg/m2 62349.67 g Lennie Coleman [facility] 04/18/2024 10:33:31 Date Recorded Body height Provider Name an d Address Organization Details Last Updated DateTime 05/18/2023 170.18 cm Lennie Coleman [facility], [facility] 05/18/2023 10:24:47 Social History None [...] SNOMED-CT Code Diagnosis ICD10 Code Diagnosis Note [id number] MD DINORAH Gordonrowena [address] [place] [address] 03/02/2023 08:21:04 03/02/2023 09:04:15 Pain of right hip joint 4182876591 92801 M25.551 Osteoarthr itis of right hip joint 3445356845 72608 M16.11 Arthritis of hip 5867593 6 M13.859 00347 SHELLIE BLANCA Maryrowena [address] [facility] [address] [place] [address] 04/16/2023 09:10:46 04/16/2023 09:39:18 History of total replacement of right hip joint 8189821994 70500 Z96.641 11399 MD DINORAH Gordon [address] [address] 05/18/2023 10:13:44 05/18/2023 10:54:06 History of total replacement of right hip joint 6521390443 18858 Z96.641 Aftercare 954393946 Z47. 1 [id number] SHELLIE BLANCA [address] [place] [address] 07/19/2023 10:26:50 07/19/2023 10:55:40 History of total replacement of right hip joint 0320146120 55689 Z96.641 40918 MD DINORAH Gordon [address] [address] 10/26/2023 08:46:24 10/26/2023 09:25:12 Osteoarthritis of right hip joint 2315169838 62922 M16.11 History of total replacement of right hip joint 5182667526 09180 Z96.641 Tendinitis of right hip 2914098232 7742205 M76.891 Additional diagnosis detail: Hip tendinitis , right 27404 MD DINORAH Gordon [facility] [address] [address] 01/18/2024 10:28:50 01/18/2024 10:50:12 History of total replacement of right hip joint 9691565908 03762 Z96.641 Tendinitis of right hip 6196140456 3301563 M76.891 Additional diagnosis detail: Hip tendinitis , right 07565 MD DINORAH Gordonrowena [address] [address] 04/18/2024 10:30:30 04/18/2024 10:57:10 History of repair of hip joint 364098268 Z96.641 Health Concerns Section Related Observation LastModified by Organization Detai ls LastModified Time None Recorded Concern Status LastModified by Organization Details LastModified Time None Recorded Advance Directives Directive None Recorded Payers Insurance Date Sequence Insurance Name Policy Number Policy Zhang Covered Member ID Zhang Member ID Guarantor Name 04/18/2024 1 [employer] (MEDICARE REPLACEMENT/A DVANTAGE - PPO) [id number] Renate Lee [id number] Renate Lee OBGyn Episode No OBEpisode recorded.
== END 2024-12-29 11:26 | disposition home or self-care (01) ==
LOC: HO.HNS 09:53
PROVIDERS: PCP Student in an Organized Health Care Education/Training Program; Referring Provider Orthopaedic Surgery; Visit Provider Physician Assistant
DX: M25.551 Pain in right hip (principal)
CPT/HCPCS: 99204

== ENCOUNTER → 2024-12-29 09:52 | Outpatient (BNVA) | payer MEDICARE, SELFPAY | PROVIDERS: PCP Student in an Organized Health Care Education/Training Program; Referring Provider Orthopaedic Surgery; Visit Provider Physician Assistant | DX: M25.551 Pain in right hip (principal); Z79.01 Long term (current) use of anticoagulants; Z79.899 Other long term (current) drug therapy | CPT/HCPCS: 99202 ==